=== PATIENT | female | born 2000 | race Caucasian/White ===

== ENCOUNTER 2022-03-30 15:47 | Outpatient (CLI) | payer OTHER ==
[2022-03-30 16:05] LABS: BILIRUBIN,URINE NEGATIVE (NEGATIVE); CLARITY,URINE CLOUDY (CLEAR); GLUCOSE, URINE (UA) NEGATIVE (NEGATIVE); KETONES,URINE (UA) NEGATIVE (NEGATIVE); LEUKOCYTE ESTERASE, URINE NEGATIVE (NEGATIVE); NITRITE,URINE POSITIVE (NEGATIVE); OCCULT BLOOD,URINE NEGATIVE (NEGATIVE); PROTEIN,URINE NEGATIVE (NEGATIVE); UROBILINOGEN,URINE 0.2 (NORMAL) E.U./dL (NORMAL)
[2022-03-30 16:15] LABS: AMORPHOUS SEDIMENT,UR Moderate /LPF; BACTERIA,URINE Rare /HPF (None Seen); RBC,URINE None Seen /HPF (0-5); SQUAMOUS EPITHELIAL CELL,UR RARE Squamous (<= Few); WBC,URINE 0-3 /HPF (0-5)
== END 2022-03-30 15:48 | disposition home or self-care (01) ==
LOC: LAB 15:47
PROVIDERS: ATTEND Nurse Practitioner
DX: Z32.01 Encounter for pregnancy test, result positive (principal)
CPT/HCPCS: 81001; 87086

== ENCOUNTER 2022-04-24 08:00 | Outpatient (CLI) | payer OTHER ==
[2022-04-24 23:34] LABS: CHLAMYDIA TRACHOMATIS DNA NEGATIVE (NEGATIVE); NEISSERIA GONORRHOEAE DNA NEGATIVE (NEGATIVE); TRICHOMONAS VAGINALIS DNA NEGATIVE (NEGATIVE)
== END 2022-04-24 23:59 | disposition home or self-care (01) ==
LOC: LAB.R 08:00
PROVIDERS: ATTEND Obstetrics & Gynecology
DX: Z11.3 Encounter for screening for infections with a predominantly sexual mode of transmission (principal)
CPT/HCPCS: 87491; 87591; 87661

== ENCOUNTER 2022-06-18 19:59 | Outpatient (CLI) | payer OTHER ==
--- NOTE | 2022-06-19 09:53 | Ultrasound Report ---
PROCEDURE: OB Detailed Eval INDICATIONS: SUPERVISION OF OUTSIDE/PRIOR DATING DATA: Last menstrual period (LMP): 01/29/2022. LMP-based estimated date of delivery (BERNARD): 11/05/2022. First dating scan (date and location): 04/14/2022. Estimated date of delivery (BERNARD) from first dating scan: 11/05/2022. The below data below was generated using the study generated BERNARD of 11/05/2022 TECHNIQUE: Real-time scanning was performed of the fetus, with image documentation and biometric measurements. Endovaginal scanning: not indicated COMPARISON: 04/14/2022. FINDINGS: General: A single living intrauterine gestation is present. Presentation: Vertex Placenta: Placental position is posterior, without previa. Amniotic fluid index: 14.7 cm, 55.5% for gestational age. heart rate: 155 beats per minute. Maternal cervical canal: 3.06 cm long; normal length is 2.5 cm or more. biometrics: Biparietal diameter: 4.6 cm, 20 weeks, 1 day Head circumference: 17.2 cm, 19 weeks, 5 days. Abdominal circumference: 14.5 cm, 19 weeks, 5 days. Femur length: 3.2 cm, 20 weeks, 0 day. Estimated gestational age from initial scan: 20 weeks, 0 day. Composite gestational age from present scan: 19 weeks, 6 days. Estimated weight and percentile: 318.6 g, 38.4%. Measurement variability in biometric dating: +/- 10 days from 12-20 weeks gestation, +/- 2 weeks from 20-30 weeks gestation, +/- 3 weeks at 30 weeks gestation or later. Anatomic survey: Neuro: Ventricles are normal at less than 10 mm. Cisterna magna is normal at 3-11 mm. Cerebellum i s normal in size and morphology. Nuchal skin fold: Normal at less than 6 mm between 14 and 20 weeks gestational age. Face: Facial profile is not well seen. Spine: No evidence for spina bifida. Heart: 4-chambered heart is present, with normal ventricular outflow tracts. Diaphragm: Diaphragm is now well seen due to position. Stomach: Left-sided stomach is present. Kidneys: No hydronephrosis. Normal is less than 5 mm in 2nd trimester, less than 7 mm in 3rd trimester. Cord: 3 vessel cord has orthotopic insertion. Bladder: Normal in size. Extremities: All 4 extremities are visualized. IMPRESSION: 1. Single live intrauterine gestation with fetus in vertex presentation. heart rate is 155 bpm. Normal amount of amniotic fluid at 14.7 cm which is at 55.5%. Normal growth. Estimated w eight is at 38.4%. 2. facial profile and diaphragm are not well visualized due to position. Rest of the feta l anatomic survey is within normal limits. Reviewed by: Clark Moreira MD on 06/19/2022 9:51 AM PDT Approved by: Clark Moreira MD on 06/19/2022 9:51 AM PDT Station ID: [id number]
== END 2022-06-18 20:00 | disposition home or self-care (01) ==
LOC: DI 19:59
PROVIDERS: ATTEND Obstetrics & Gynecology
DX: O09.91 Supervision of high risk pregnancy, unspecified, first trimester (principal); Z3A.19 19 weeks gestation of pregnancy

== ENCOUNTER 2022-06-25 16:59 | Outpatient (CLI) | payer OTHER ==
--- NOTE | 2022-06-26 09:54 | Ultrasound Report ---
PROCEDURE: OB F/U or Repeat INDICATIONS: SUPERVISION OF OUTSIDE/PRIOR DATING DATA: Last menstrual period (LMP): 01/29/2022. LMP-based estimated date of delivery (BERNARD): 11/05/2022. First dating scan (date and location): 04/14/2022. Estimated date of delivery (BERNARD) from first dating scan: 11/05/2022. The below data below was generated using the ultrasound BERNARD of 11/05/2022 TECHNIQUE: Real-time scanning was performed of the fetus, with image documentation. Endovaginal scanning: Not performed. COMPARISON: OB ultrasound 06/18/2022. FINDINGS: General: A single living intrauterine gestation is present. Presentation: Transverse. Placenta: Placental position is posterior, without previa. Amniotic fluid index: 12.7 cm, normal for gestational age. Largest pocket 3.8 cm. heart rate: 138 beats per minute. Maternal cervical canal: 4.3 cm long; normal length is 2.5 cm or more. No funneling. Estimated gestational age from initial scan: 21 weeks 0 days Other: profile is again suboptimally seen. No abnormality is identified. Nose and lips are nor mal. Orbits unremarkable. Diaphragm is unremarkable. Maternal ovaries are unremarkable. IMPRESSION: 1. Miller living intrauterine at 21 weeks 0 days based on prior ultrasound. Transverse p osition. 2. Normal placenta and amniotic fluid. 3. profile is again not seen due to positioning. Nose and lips and orbits are unremarkable. Kanwal phragm is unremarkable. Follow-up OB ultrasound should be considered to complete anatomic survey with profile view. Reviewed by: Foreign Fleming MD on 06/26/2022 9:52 AM PDT Approved by: Foreign Fleming MD on 06/26/2022 9:52 AM PDT Station ID: [id number]
== END 2022-06-25 17:00 | disposition home or self-care (01) ==
LOC: DI 16:59
PROVIDERS: ATTEND Obstetrics & Gynecology
DX: O09.92 Supervision of high risk pregnancy, unspecified, second trimester (principal)

== ENCOUNTER 2022-08-12 12:22 | Outpatient (CLI) | payer OTHER ==
[2022-08-12 13:34] LABS: HCT - HEMATOCRIT 34.5 % (37.0-47.0); HGB - HEMOGLOBIN 10.7 g/dL (12.0-16.0); MEAN CORPUSCULAR HEMOGLOBIN 24.9 pg (27.0-31.0); MEAN CORPUSCULAR VOLUME 80.2 fL (81.0-99.0); MEAN PLATELET VOLUME 10.3 fL (7.9-10.8); RED BLOOD COUNT 4.3 10^6/uL (4.20-5.40); WHITE BLOOD COUNT 10.4 x10^3/uL (4.8-10.8)
== END 2022-08-12 12:23 | disposition home or self-care (01) ==
LOC: LAB 12:22
PROVIDERS: ATTEND Obstetrics & Gynecology
DX: O09.92 Supervision of high risk pregnancy, unspecified, second trimester (principal); Z36.89 Encounter for other specified antenatal screening
CPT/HCPCS: 36415; 82950; 85027

== ENCOUNTER 2022-08-18 10:43 | Emergency (ER) | payer OTHER ==
[2022-08-18 11:20] LABS: BASOPHILS # (AUTO) 0.1 10^3/uL (0.0-0.1); BASOPHILS % (AUTO) 0.5 %; EOSINOPHILS # (AUTO) 0.1 10^3/uL (0.0-0.7); EOSINOPHILS % (AUTO) 0.8 %; HGB - HEMOGLOBIN 11.3 g/dL (12.0-16.0); LYMPHOCYTES # (AUTO) 1.6 10^3/uL (1.5-3.5); LYMPHOCYTES % (AUTO) 15.3 %; MEAN CORPUSCULAR HEMOGLOBIN 25.2 pg (27.0-31.0); MEAN CORPUSCULAR HGB CONC 31.4 g/dL (32.0-36.0); MEAN CORPUSCULAR VOLUME 80.2 fL (81.0-99.0); MEAN PLATELET VOLUME 10.4 fL (7.9-10.8); MONOCYTES # (AUTO) 0.7 10^3/uL (0.0-1.0); MONOCYTES % (AUTO) 6.8 %; NEUTROPHILS # (AUTO) 7.7 10^3/uL (1.5-6.6); NEUTROPHILS % (AUTO) 74.7 %; PLT - PLATELET COUNT 254 10^3/uL (130-450); RED BLOOD COUNT 4.49 10^6/uL (4.20-5.40); RED CELL DISTRIBUTION WIDTH 15.1 % (12.0-15.0); WHITE BLOOD COUNT 10.4 x10^3/uL (4.8-10.8)
[2022-08-18 11:35] LABS: ALBUMIN 2.9 g/dL (3.2-5.5); ALBUMIN/GLOBULIN RATIO 0.8 (1.0-2.2); BILIRUBIN,TOTAL 0.4 mg/dL (0.2-1.0); CALCIUM 8.7 mg/dL (8.5-10.3); CREATININE 0.4 mg/dL (0.4-1.0); POTASSIUM 3.9 mmol/L (3.5-5.0); TOTAL PROTEIN 6.4 g/dL (6.7-8.2)
[2022-08-18] MEDS ORDERED: SODIUM CHLORIDE 0.9% 1,000 ML IV STA (11:59)
--- NOTE | 2022-08-18 13:18 | PROCEDURE REPORT ---
- HPI Diagnosis/Indication for NST: Other (ED visit for fever, URI) Vital Signs Temperature 98.1 F 08/18/22 10:56 Heart Rate 89 08/18/22 10:56 Respiratory Rate 14 08/18/22 10:56 Blood Pressure 115/69 08/18/22 10:56 O2 Saturation 99 08/18/22 10:56 Temperature 97.7 F 08/18/22 13:05 Heart Rate 77 08/18/22 13:05 Respiratory Rate 17 08/18/22 13:05 Blood Pressure 110/64 08/18/22 13:05 O2 Saturation 99 08/18/22 13:05 If not protocol: Oxygen Flow, liters/minute - NST Procedure EFM: 140s, moderate variability, positive accelerations, no decelerations [place]: No contractions NST Reactive/Category 1 NST performed and read 08/18/22. - Results and Plan Plan: 22yo at 28.5w with reactive NST today. NST performed during ED visit for fever/URI. Follow up as scheduled in WC.
[2022-08-18 13:19] LABS: B. PARAPERTUSSIS- RESP PCR PAN NOT DETECTED; B. PERTUSSIS- RESP PCR PANEL NOT DETECTED; C. PNEUMONIAE- RESP PCR PANEL NOT DETECTED; CORONAVIRUS 229E-RESP PCR NOT DETECTED; CORONAVIRUS HKU1-RESP PCR NOT DETECTED; CORONAVIRUS NL63-RESP PCR NOT DETECTED; CORONAVIRUS OC43-RESP PCR NOT DETECTED; HUMAN METAPNEUMOVIRUS NOT DETECTED; INFLUENZA A- RESP PCR PANEL NOT DETECTED; INFLUENZA B - RESP PCR PANEL NOT DETECTED; M. PNEUMONIAE- RESP PCR PANEL NOT DETECTED; PARAINFLUENZA VIRUS 1 NOT DETECTED; PARAINFLUENZA VIRUS 2 NOT DETECTED; PARAINFLUENZA VIRUS 3 NOT DETECTED; PARAINFLUENZA VIRUS 4 NOT DETECTED; RHINOVIRUS/ENTEROVIRUS NOT DETECTED; RSV- RESP PCR PANEL NOT DETECTED; SARS-CoV-2 -RESP PCR PANEL NOT DETECTED
[2022-08-18] MEDS ORDERED: MECLIZINE 12.5 MG TABLET PO STA (13:27)
--- NOTE | 2022-08-18 13:28 | ED Physician Documentation ---
PD HPI SYNCOPE - Stated complaint Stated Complaint: N/V,DIZZINESS - Chief complaint Chief Complaint: Neuro - History obtained from History obtained from: Patient, Family - History of Present Illness Witnessed: Witnessed Timing - onset: Today Duration: Seconds Preceding symptoms: Nausea / vomiting (no vomiting but did get nauseated. has had nausea the past several days. trying to take fluids well. no fever nor URI symptoms. [place] lightheaded walking this morning, and sat down, then was seen to faint. awoke few seconds later. Still feeling weak. No pains (head/chest/abd).), Light headed Contributing factors: Decreased PO intake (some nausea the past few days. Worse today.), Just stood up. No: Recent med change, Emotional upset Injury occurred: No: Fell, Head injury, Neck injury Similar symptoms before: Has not had sx before Recently seen: Clinic (28 weeks with normal care so far.) Review of Systems Constitutional: reports: Fatigue. denies: Fever, Chills Nose: denies: Rhinorrhea / runny nose, Congestion Throat: denies: Sore throat Respiratory: denies: Cough GI: reports: Nausea. denies: Abdominal Pain, Vomiting, Diarrhea : reports: Now EGA (28 wks). denies: Discharge, Vaginal bleeding Neurologic: reports: Generalized weakness. 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 - Present Medications Home Medications: Ambulatory Orders Medication Instructions Recorded Confirmed Doxylamine Succinate [Unisom Sleep 25 mg PO Q6H PRN #15 tablet 08/18/22 Aid] Metoclopramide [Reglan] 10 mg PO BID PRN 08/18/22 08/18/22 - Allergies Allergies/Adverse Reactions: Allergies Allergy/AdvReac Type Severity Reaction Status Date / Time No Known Drug Allergies Allergy Verified 08/18/22 11:02 - Social History Does the pt smoke?: No Smoking Status: Never smoker Does the pt drink ETOH?: Yes Does the pt have substance abuse?: Yes - Immunizations Immunizations are current?: Yes PD ED PE NORMAL - Vitals Vital signs reviewed: Yes - General General: Alert and oriented X 3, No acute distress, Well developed/nourished - HEENT HEENT: Pharynx benign - Neck Neck: Supple, no meningeal sign, No adenopathy - Cardiac Cardiac: RRR, No murmur, Other (bedside U/S showed normal symmetric dynamic contractions. ) - Respiratory Respiratory: Clear bilaterally - Abdomen Abdomen: Normal bowel sounds, Soft, Non distended, No organomegaly, Other (bedside U/S showing normal movement and heart beat. NST by OB showed no contractions. No free fluid in pelvis nor abdomen (neg FAST exam)) Results - Vitals Vitals: Vital Signs - 24 hr 08/18/22 08/18/22 08/18/22 10:56 12:02 12:22 Temperature 36.7 C Heart Rate 89 85 Heart Rate [ 82 Sitting] Heart Rate [ 90 Standing] Heart Rate [ 85 Supine] Respiratory 14 13 Rate Blood Pressure 115/69 121/74 Blood Pressure 111/70 [Sitting] Blood Pressure 107/70 [Standing] Blood Pressure 109/66 [Supine] O2 Saturation 99 100 08/18/22 08/18/22 08/18/22 12:30 13:00 13:05 Temperature 36.5 C Heart Rate 75 82 77 Heart Rate [ Sitting] Heart Rate [ Standing] Heart Rate [ Supine] Respiratory 11 L 21 17 Rate Blood Pressure 109/67 103/67 110/64 Blood Pressure [Sitting] Blood Pressure [Standing] Blood Pressure [Supine] O2 Saturation 99 100 99 08/18/22 13:30 Temperature Heart Rate 85 Heart Rate [ Sitting] Heart Rate [ Standing] Heart Rate [ Supine] Respiratory 14 Rate Blood Pressure 108/64 Blood Pressure [Sitting] Blood Pressure [Standing] Blood Pressure [Supine] O2 Saturation 98 Oxygen O2 Source Room air - Labs Labs: Laboratory Tests 08/18/22 08/18/22 08/18/22 11:05 11:07 11:07 WBC 10.4 RBC 4.49 Hgb 11.3 L Hct 36.0 L MCV 80.2 L MCH 25.2 L MCHC 31.4 L RDW 15.1 H Plt Count 254 MPV 10.4 Neut # (Auto) 7.7 H Lymph # (Auto) 1.6 [place] # (Auto) 0.7 Eos # (Auto) 0.1 Baso # (Auto) 0.1 Absolute Nucleated RBC 0.00 Nucleated RBC % 0.0 Sodium 134 L Potassium 3.9 Chloride 104 Carbon Dioxide 21 Anion Gap 9.0 BUN 8 Creatinine 0.4 Estimated GFR (MDRD) 198 Glucose 83 Calcium 8.7 Magnesium 1.8 Total Bilirubin 0.4 AST 12 ALT 12 Alkaline Phosphatase 86 Troponin I High Sens Total Protein 6.4 L Albumin 2.9 L Globulin 3.5 Albumin/Globulin Ratio 0.8 L Lipase 31 Urine Color Urine Clarity Urine pH Ur Specific [place] Urine Protein Urine Glucose (UA) Urine Ketones Urine Occult Blood Urine Nitrite Urine Bilirubin Urine Urobilinogen Ur Leukocyte Esterase Ur Microscopic Review Urine Culture Comments Nasal Adenovirus (PCR) Nasal B. parapertussis DNA (PCR) Nasal Coronavir 229E PCR Nasal Coronavir HKU1 PCR Nasal Coronavir NL63 PCR Nasal Coronavir OC43 PCR Nasal Enterovir/Rhinovir PCR Nasal Influenza B PCR Nasal Influenza A PCR Nasal Parainfluen 1 PCR Nasal Parainfluen 2 PCR Nasal Parainfluen 3 PCR Nasal Parainfluen 4 PCR Nasal RSV (PCR) Nasal B.pertussis DNA PCR Nasal C.pneumoniae (PCR) Martin Human Metapneumo PCR Nasal M.pneumoniae (PCR) Nasal SARS-CoV-2 (PCR) 08/18/22 08/18/22 08/18/22 11:07 12:21 13:40 WBC RBC Hgb Hct MCV MCH MCHC RDW Plt Count MPV Neut # (Auto) Lymph # (Auto) [place]ink[place] # (Auto) Eos # (Auto) Baso # (Auto) Absolute Nucleated RBC Nucleated RBC % Sodium Potassium Chloride Carbon Dioxide Anion Gap BUN Creatinine Estimated GFR (MDRD) Glucose Calcium Magnesium Total Bilirubin AST ALT Alkaline Phosphatase Troponin I High Sens < 2.3 L Total Protein Albumin Globulin Albumin/Globulin Ratio Lipase Urine Color DARK YELLOW Urine Clarity CLEAR Urine pH 6.0 Ur Specific [place] 1.025 Urine Protein NEGATIVE Urine Glucose (UA) NEGATIVE Urine Ketones >=80 H Urine Occult Blood NEGATIVE Urine Nitrite NEGATIVE Urine Bilirubin NEGATIVE Urine Urobilinogen 0.2 (NORMAL) Ur Leukocyte Esterase NEGATIVE Ur Microscopic Review NOT INDICATED Urine Culture Comments NOT INDICATED Nasal Adenovirus (PCR) NOT DETECTED Nasal B. parapertussis DNA (PCR) NOT DETECTED Nasal Coronavir 229E PCR NOT DETECTED Nasal Coronavir HKU1 PCR NOT DETECTED Nasal Coronavir NL63 PCR NOT DETECTED Nasal Coronavir OC43 PCR NOT DETECTED Nasal Enterovir/Rhinovir PCR NOT DETECTED Nasal Influenza B PCR NOT DETECTED Nasal Influenza A PCR NOT DETECTED Nasal Parainfluen 1 PCR NOT DETECTED Nasal Parainfluen 2 PCR NOT DETECTED Nasal Parainfluen 3 PCR NOT DETECTED Nasal Parainfluen 4 PCR NOT DETECTED Nasal RSV (PCR) NOT DETECTED Nasal B.pertussis DNA PCR NOT DETECTED Nasal C.pneumoniae (PCR) NOT DETECTED Martin Human Metapneumo PCR NOT DETECTED Nasal M.pneumoniae (PCR) NOT DETECTED Nasal SARS-CoV-2 (PCR) NOT DETECTED PD MEDICAL DECISION MAKING - ED course Complexity details: re-evaluated patient (patient feeling okay with iV fluids.), considered differential, d/w patient, d/w speech correction consultant (Dr Guzman, passenger conductor. [place] workup was okay. ) Departure - Departure Disposition: 01 Home, Self Care Clinical Impression: Lightheaded Qualifiers: Weeks of gestation: 28 weeks Qualified Code(s): Z3A.28 - 28 weeks gestation of Syncope Qualifiers: Syncope type: unspecified Qualified Code(s): R55 - Syncope and collapse Condition: Stable Record reviewed to determine appropriate education?: Yes Instructions: ED Fainting Unkn Cause Follow-Up: Chavez Arauz MD [Provider Admit Priv/Credential] - Prescriptions: Doxylamine Succinate [Unisom Sleep Aid] 25 mg PO Q6H PRN #15 tablet PRN Reason: Nausea / Vomiting Comments: Your basic blood tests are normal enough here. You are mildly anemic but that is fairly common in . Your electrolytes and blood sugar and kidney function are good. Bedside evaluation of your baby's heartbeat and movement are good. No signs of fluid noted in your pelvis or abdominal cavity. Bedside evaluation of your heart function appears normal with limited bedside ultrasound. At this point unclear the cause of your fainting episode. Likely to be under hydration in conjunction with your mild dizziness type feeling. Consideration would be for an early viral illness or just hydration in general. You can use doxylamine every 6-8 hours if needed for nausea and could be helpful with the dizziness feeling as well. Your respiratory viral PCR test was negative for the viruses tested so in p articular no signs of COVID/influenza/RSV/parainfluenza which are the most current major viral illnesses going around. Follow-up with the [facility] clinic if not feeling better over the next few days. Rest today. Stay well-hydrated. Discharge Date/Time: 08/18/22 13:52
[2022-08-18 13:34] VITALS: BP 108/64
[2022-08-18 14:09] LABS: BILIRUBIN,URINE NEGATIVE (NEGATIVE); GLUCOSE, URINE (UA) NEGATIVE (NEGATIVE); KETONES,URINE (UA) >=80 mg/dL (NEGATIVE); LEUKOCYTE ESTERASE, URINE NEGATIVE (NEGATIVE); NITRITE,URINE NEGATIVE (NEGATIVE); OCCULT BLOOD,URINE NEGATIVE (NEGATIVE); PROTEIN,URINE NEGATIVE (NEGATIVE); UROBILINOGEN,URINE 0.2 (NORMAL) E.U./dL (NORMAL)
[2022-08-18 14:12] LABS: CLARITY,URINE CLEAR (CLEAR)
== END 2022-08-18 13:52 | disposition home or self-care (01) ==
LOC: ED 10:43
DX: O99.891 Other specified diseases and conditions complicating pregnancy (principal); R42 Dizziness and giddiness; Z3A.28 28 weeks gestation of pregnancy; Z20.822 Contact with and (suspected) exposure to COVID-19
CPT/HCPCS: 36415; 80053; 81003; 83690; 83735; 84484; 85025; 87633; 93005; 96360; 99284; A9270; 81001; 87086

== ENCOUNTER 2022-09-10 15:22 | Emergency (ER) | payer OTHER ==
[2022-09-10] MEDS ORDERED: SODIUM CHLORIDE 0.9% 1,000 ML IV STA ×2 (16:18→18:38)
--- NOTE | 2022-09-10 16:26 | ED Physician Documentation ---
History of Present Illness - Stated complaint Stated Complaint: FEVER,BODY ACHES/CHILLS - Chief complaint Chief Complaint: Heent - History obtained from History obtained from: Patient - Additonal information Additional information: This is a 22-year-old female who has no significant past medical history who is 32 weeks who presented with sudden onset, fever,Chills, sore throat, body aches, decreased Appetite earlier this morning. The patient fine yesterday and actually had a follow-up OB appointment yesterday in which everything looked well. She has not had any sick contacts. She denies Any vomiting or diarrhea, no change in urination, no flank pain. She has not had any vaginal bleeding or loss of fluids. She is feeling baby move though less than she is used to. She has had appetite is has not eaten much of anything but is tolerating p.o. fluids. She took Tylenol this morning with some relief. 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 - Present Medications Home Medications: Ambulatory Orders Medication Instructions Recorded Confirmed Doxylamine Succinate [Unisom Sleep 25 mg PO Q6H PRN #15 tablet 08/18/22 Aid] Metoclopramide [Reglan] 10 mg PO BID PRN 08/18/22 08/18/22 - Allergies Allergies/Adverse Reactions: Allergies Allergy/AdvReac Type Severity Reaction Status Date / Time No Known Drug Allergies Allergy Verified 09/10/22 15:30 - Social History Does the pt smoke?: No Smoking Status: Never smoker Does the pt drink ETOH?: Yes Does the pt have substance abuse?: Yes - Immunizations Immunizations are current?: Yes PD ED PE NORMAL - Vitals Vital signs reviewed: Yes - General General: Alert and oriented X 3, No acute distress, Well developed/nourished - HEENT HEENT: Atraumatic, Ears normal, Moist mucous membranes, Pharynx benign - Neck Neck: Supple, no meningeal sign, No adenopathy - Cardiac Cardiac: RRR (Tachycardic), No murmur - Respiratory Respiratory: No respiratory distress, Clear bilaterally - Abdomen Abdomen: Normal bowel sounds, Soft, Non tender, Non distended, Other (Gravid abdomen with active movement) - Back Back: No CVA TTP - Derm Derm: Normal color, Warm and dry, No rash - Extremities Extremities: No deformity, No edema - Neuro Neuro: Alert and oriented X 3 Eye Opening: Spontaneous Motor: Obeys Commands Verbal: Oriented GCS Score: 15 Results - Vitals Vitals: Vital Signs - 24 hr 09/10/22 09/10/22 09/10/22 15:26 17:29 18:36 Temperature 37.7 C Heart Rate 120 H 105 H 121 H Respiratory 16 29 H 15 Rate Blood Pressure 121/72 118/64 102/57 L O2 Saturation 98 97 95 09/10/22 20:22 Temperature Heart Rate 112 H Respiratory 15 Rate Blood Pressure 124/66 O2 Saturation 97 Oxygen O2 Source Room air - Labs Labs: Laboratory Tests 09/10/22 09/10/22 09/10/22 16:36 16:36 16:36 WBC RBC Hgb Hct MCV MCH MCHC RDW Plt Count MPV Neut # (Auto) Lymph # (Auto) [place] # (Auto) Eos # (Auto) Baso # (Auto) Absolute Nucleated RBC Nucleated RBC % Sodium Potassium Chloride Carbon Dioxide Anion Gap BUN Creatinine Estimated GFR (MDRD) Glucose Calcium Urine Color YELLOW Urine Clarity CLEAR Urine pH 6.0 Ur Specific [place] 1.025 Urine Protein NEGATIVE Urine Glucose (UA) NEGATIVE Urine Ketones >=80 H Urine Occult Blood NEGATIVE Urine Nitrite NEGATIVE Urine Bilirubin NEGATIVE Urine Urobilinogen 0.2 (NORMAL) Ur Leukocyte Esterase NEGATIVE Ur Microscopic Review NOT INDICATED Nasal Adenovirus (PCR) NOT DETECTED Nasal B. parapertussis DNA (PCR) NOT DETECTED Nasal Coronavir 229E PCR NOT DETECTED Nasal Coronavir HKU1 PCR NOT DETECTED Nasal Coronavir NL63 PCR NOT DETECTED Nasal Coronavir OC43 PCR NOT DETECTED Nasal Enterovir/Rhinovir PCR NOT DETECTED Nasal Influenza B PCR NOT DETECTED Nasal Influenza A PCR NOT DETECTED Nasal Parainfluen 1 PCR NOT DETECTED Nasal Parainfluen 2 PCR NOT DETECTED Nasal Parainfluen 3 PCR NOT DETECTED Nasal Parainfluen 4 PCR NOT DETECTED Nasal RSV (PCR) NOT DETECTED Nasal B.pertussis DNA PCR NOT DETECTED Nasal C.pneumoniae (PCR) NOT DETECTED Martin Human Metapneumo PCR NOT DETECTED Nasal M.pneumoniae (PCR) NOT DETECTED Nasal SARS-CoV-2 (PCR) NOT DETECTED Group A Strep Rapid Negative 09/10/22 09/10/22 16:39 16:39 WBC 16.7 H RBC 4.45 Hgb 10.4 L Hct 33.7 L MCV 75.7 L MCH 23.4 L MCHC 30.9 L RDW 15.6 H Plt Count 282 MPV 10.3 Neut # (Auto) 13.4 H Lymph # (Auto) 1.6 [place] # (Auto) 1.4 H Eos # (Auto) 0.0 Baso # (Auto) 0.1 Absolute Nucleated RBC 0.02 Nucleated RBC % 0.1 Sodium 132 L Potassium 3.5 Chloride 101 Carbon Dioxide 20 L Anion Gap 11.0 BUN 5 L Creatinine 0.5 Estimated GFR (MDRD) 153 Glucose 87 Calcium 8.7 Urine Color Urine Clarity Urine pH Ur Specific [place] Urine Protein Urine Glucose (UA) Urine Ketones Urine Occult Blood Urine Nitrite Urine Bilirubin Urine Urobilinogen Ur Leukocyte Esterase Ur Microscopic Review Nasal Adenovirus (PCR) Nasal B. parapertussis DNA (PCR) Nasal Coronavir 229E PCR Nasal Coronavir HKU1 PCR Nasal Coronavir NL63 PCR Nasal Coronavir OC43 PCR Nasal Enterovir/Rhinovir PCR Nasal Influenza B PCR Nasal Influenza A PCR Nasal Parainfluen 1 PCR Nasal Parainfluen 2 PCR Nasal Parainfluen 3 PCR Nasal Parainfluen 4 PCR Nasal RSV (PCR) Nasal B.pertussis DNA PCR Nasal C.pneumoniae (PCR) Martin Human Metapneumo PCR Nasal M.pneumoniae (PCR) Nasal SARS-CoV-2 (PCR) Group A Strep Rapid PD MEDICAL DECISION MAKING - ED course Complexity details: reviewed results, re-evaluated patient, considered differential, d/w patient, d/w family ED course: This is a 22-year-old female with no significant past medical history who presented with fever and body aches that started today as per HPI. Patient is well-appearing on physical exam though tachycardic on arrival with heart rate in the 120s. There are no acute physical exam findings, we obtained a viral panel and strep test which were negative therefore I did proceed with additional work-up given patient did meet SIRS criteria with fever and tachycardia. Her CBC is significant for a white blood cell count of 16,000 otherwise stable. Urinalysis is negative for infection. Chest x-ray negative for infection. Patient was given a total of 2 L of IV fluids with some improvement in her symptoms but still felt achy and fatigued. We did obtain a nonstress test as patient is 32 weeks and baby looked good. This is a suspect the patient has the flu Or other viral illness. We have drawn blood cultures To cover sepsis work-up however I have low suspicion patient has no other risk factors for bacteremia, no IV drug use, no cellulitis, no other signs of infection on physical exam. She was advised to continue Tylenol and stay well- hydrated if she has new or worsening symptoms return to the ER. Routine OB return Precautions discussed as well. Departure - Departure Disposition: 01 Home, Self Care Clinical Impression: Viral syndrome Condition: Good Instructions: ED Viral Syndrome Comments: You presented with body aches and chills and generally feeling unwell. We did a number of different tests which are all reassuring at this time. We did collect blood cultures though I have low suspicion that you have any type of blood infection but we will notify you if these turn positive. This is most likely a viral illness and we recommend supportive measures including plenty of rest, Tylenol as needed for body aches and fever. If you have new or worsening symptoms, return to the ER. Discharge Date/Time: 09/10/22 20:22
[2022-09-10 16:46] LABS: BASOPHILS # (AUTO) 0.1 10^3/uL (0.0-0.1); BASOPHILS % (AUTO) 0.3 %; EOSINOPHILS % (AUTO) 0.2 %; HCT - HEMATOCRIT 33.7 % (37.0-47.0); HGB - HEMOGLOBIN 10.4 g/dL (12.0-16.0); LYMPHOCYTES # (AUTO) 1.6 10^3/uL (1.5-3.5); LYMPHOCYTES % (AUTO) 9.7 %; MEAN CORPUSCULAR HEMOGLOBIN 23.4 pg (27.0-31.0); MEAN CORPUSCULAR HGB CONC 30.9 g/dL (32.0-36.0); MEAN CORPUSCULAR VOLUME 75.7 fL (81.0-99.0); MEAN PLATELET VOLUME 10.3 fL (7.9-10.8); MONOCYTES # (AUTO) 1.4 10^3/uL (0.0-1.0); MONOCYTES % (AUTO) 8.5 %; NEUTROPHILS # (AUTO) 13.4 10^3/uL (1.5-6.6); NRBC ABSOLUTE COUNT (AUTO) 0.02 x10^3/uL; NUCLEATED RED BLOOD CELLS AUTO 0.1 /100WBC; PLT - PLATELET COUNT 282 10^3/uL (130-450); RED BLOOD COUNT 4.45 10^6/uL (4.20-5.40); RED CELL DISTRIBUTION WIDTH 15.6 % (12.0-15.0); WHITE BLOOD COUNT 16.7 x10^3/uL (4.8-10.8)
[2022-09-10 16:55] LABS: CALCIUM 8.7 mg/dL (8.5-10.3); CREATININE 0.5 mg/dL (0.4-1.0); POTASSIUM 3.5 mmol/L (3.5-5.0)
[2022-09-10 16:56] LABS: BILIRUBIN,URINE NEGATIVE (NEGATIVE); GLUCOSE, URINE (UA) NEGATIVE (NEGATIVE); KETONES,URINE (UA) >=80 mg/dL (NEGATIVE); LEUKOCYTE ESTERASE, URINE NEGATIVE (NEGATIVE); NITRITE,URINE NEGATIVE (NEGATIVE); OCCULT BLOOD,URINE NEGATIVE (NEGATIVE); PROTEIN,URINE NEGATIVE (NEGATIVE); UROBILINOGEN,URINE 0.2 (NORMAL) E.U./dL (NORMAL)
[2022-09-10 16:57] LABS: CLARITY,URINE CLEAR (CLEAR)
[2022-09-10 17:01] LABS: RAPID STREP SCREEN Negative (Negative)
[2022-09-10 17:42] LABS: B. PARAPERTUSSIS- RESP PCR PAN NOT DETECTED; B. PERTUSSIS- RESP PCR PANEL NOT DETECTED; C. PNEUMONIAE- RESP PCR PANEL NOT DETECTED; CORONAVIRUS 229E-RESP PCR NOT DETECTED; CORONAVIRUS HKU1-RESP PCR NOT DETECTED; CORONAVIRUS NL63-RESP PCR NOT DETECTED; CORONAVIRUS OC43-RESP PCR NOT DETECTED; HUMAN METAPNEUMOVIRUS NOT DETECTED; INFLUENZA A- RESP PCR PANEL NOT DETECTED; INFLUENZA B - RESP PCR PANEL NOT DETECTED; M. PNEUMONIAE- RESP PCR PANEL NOT DETECTED; PARAINFLUENZA VIRUS 1 NOT DETECTED; PARAINFLUENZA VIRUS 2 NOT DETECTED; PARAINFLUENZA VIRUS 3 NOT DETECTED; PARAINFLUENZA VIRUS 4 NOT DETECTED; RHINOVIRUS/ENTEROVIRUS NOT DETECTED; RSV- RESP PCR PANEL NOT DETECTED; SARS-CoV-2 -RESP PCR PANEL NOT DETECTED
--- NOTE | 2022-09-10 18:36 | XRAY Report ---
PROCEDURE: Chest 1 View X-Ray INDICATIONS: Chest pain TECHNIQUE: One view of the chest was acquired. COMPARISON: None. FINDINGS: Surgical changes and devices: None. Lungs and pleura: No pleural effusions or pneumothorax. Lungs are clear. Mediastinum: Mediastinal contours appear normal. Heart size is normal. Bones and chest wall: No suspicious bony lesions. Overlying soft tissues appear unremarkable. IMPRESSION: No acute cardiopulmonary process demonstrated radiographically. Reviewed by: David Stevens MD on 09/10/2022 6:35 PM [facility] Approved by: David Stevens MD on 09/10/2022 6:35 PM [facility] Station ID: [id number]
[2022-09-10 20:23] VITALS: BP 124/66
--- NOTE | 2022-09-10 21:04 | PROCEDURE REPORT ---
- HPI Diagnosis/Indication for NST: Other (Maternal Fever) Vital Signs Temperature 99.9 F 09/10/22 15:26 Heart Rate 120 H 09/10/22 15:26 Respiratory Rate 16 09/10/22 15:26 Blood Pressure 121/72 09/10/22 15:26 O2 Saturation 98 09/10/22 15:26 Temperature 99.9 F 09/10/22 15:26 Heart Rate 112 H 09/10/22 20:22 Respiratory Rate 15 09/10/22 20:22 Blood Pressure 124/66 09/10/22 20:22 O2 Saturation 97 09/10/22 20:22 If not protocol: Oxygen Flow, liters/minute
== END 2022-09-10 20:22 | disposition home or self-care (01) ==
LOC: ED 15:22
DX: O98.513 Other viral diseases complicating pregnancy, third trimester (principal); B34.9 Viral infection, unspecified; Z3A.32 32 weeks gestation of pregnancy; Z20.822 Contact with and (suspected) exposure to COVID-19
CPT/HCPCS: 36415; 80048; 81001; 81003; 85025; 87040; 87070; 87430; 87633; 96360; 96361; 99282

== ENCOUNTER 2022-10-06 10:03 | Outpatient (CLI) | payer OTHER ==
[2022-10-06 10:27] VITALS: BP 122/71
[2022-10-06 11:07] LABS: RUPTURE OF MEMBRANES PLUS NEGATIVE (NEGATIVE)
--- NOTE | 2022-10-06 11:41 | PROVIDER PROGRESS NOTE ---
- HPI Chief Complaint: Leakage of vaginal fluid Current : Current EDU 11/05/22 Gestation 35 Weeks and 5 Days 2 Para 1 Vital Signs Temperature 98.6 F 10/06/22 10:16 Heart Rate 86 10/06/22 10:16 Respiratory Rate 16 10/06/22 10:16 Blood Pressure 122/71 10/06/22 10:16 Temperature 98.6 F 10/06/22 10:16 Heart Rate 86 10/06/22 10:16 Respiratory Rate 16 10/06/22 10:16 Blood Pressure 122/71 10/06/22 10:16 O2 Saturation If not protocol: Oxygen Flow, liters/minute - Procedures NST Procedure: NST Procedure Start Date 10/06/22 Start Time 10:12 Vibroacoustic Stimulation Used No Patient States Movement Yes Service Date of procedure: 10/06/22 (Read 10/06/2022) - Plan Plan: Patient is a 22-year-old G2, P1 at 35 weeks 5 days gestation presenting to triage for leaking fluid. She is at around 0600 to 0630 she felt a small amount of leaking, but noticed this was after she had drained her bladder. There is no large gush of fluid. She has good movement. No vaginal bleeding, no contractions. She denies headache, right upper quadrant pain, changes in vision. Past surgical history Previous section x1 Physical Constitutional: alert, no acute distress, well hydrated, well developed, well nourished, appropriate dress. Cardiovascular: Regular rate and rhythm. Respiratory: no respiratory distress. Abdomen: nondistended, nontender, no guarding. Psych: affect and mood appropriate, normal interaction, good eye contact. FHT: 150 bpm baseline, moderate variability, accelerations present, no decelerations. [place]: Quiescent SVE: 0/0/-3 ROM plus: Negative Assessment and plan 22-year-old -0-0-1 at 35 weeks 5 days gestation with vaginal leaking, not rupture of membranes 1. Vaginal discharge: -ROM plus was negative, and not having any significant drainage on exam. -Very low likelihood of rupture of membranes. Discussed labor precautions, and the different membranes were in fact rupture, high likelihood of labor in the next 24 hours. -Discussed labor precautions, rupture of membrane precautions. 2. 35 weeks gestation -Has outpatient OB visit tomorrow 3. Previous low-transverse section x1 -Patient already scheduled for repeat section.
[2022-10-06 13:08] LABS: BACTERIAL VAGINOSIS DNA NEGATIVE (NEGATIVE); CANDIDA GLABRATA DNA NEGATIVE (NEGATIVE); CANDIDA GROUP DNA NEGATIVE (NEGATIVE); CANDIDA KRUSEI DNA NEGATIVE (NEGATIVE); TRICHOMONAS VAGINALIS DNA NEGATIVE (NEGATIVE)
== END 2022-10-06 11:45 | disposition home or self-care (01) ==
LOC: WFO 10:03 → FBP 10:08 → WFO 11:45
PROVIDERS: ATTEND Obstetrics & Gynecology
DX: O99.891 Other specified diseases and conditions complicating pregnancy (principal); N89.8 Other specified noninflammatory disorders of vagina; O34.219 Maternal care for unspecified type scar from previous cesarean delivery; Z3A.35 35 weeks gestation of pregnancy
CPT/HCPCS: 59025; 81514; 84112; 87797; 99214

== ENCOUNTER 2022-10-08 08:00 | Outpatient (CLI) | payer OTHER | END 2022-10-08 23:59 | disposition home or self-care (01) | LOC: LAB.WC 08:00 | PROVIDERS: ATTEND Obstetrics & Gynecology | DX: Z36.85 Encounter for antenatal screening for Streptococcus B (principal) | CPT/HCPCS: 87797 ==

== ENCOUNTER 2022-10-13 10:58 | Outpatient (CLI) | payer OTHER ==
--- NOTE | 2022-10-13 14:05 | Ultrasound Report ---
PROCEDURE: OB F/U or Repeat INDICATIONS: SUPERVISION OF OUTSIDE/PRIOR DATING DATA: Last menstrual period (LMP): 01/29/2022. LMP-based estimated date of delivery (BERNARD): 11/05/2022. First dating scan (date and location): 04/14/2022. Estimated date of delivery (BERNARD) from first dating scan: 11/05/2022 (working BERNARD). TECHNIQUE: Real-time scanning was performed of the fetus, with image documentation. COMPARISON: 06/25/2022 FINDINGS: General: A single living intrauterine gestation is present. Presentation: Vertex Placenta: Placental position is posterior, without previa. Amniotic fluid index: 11.9 cm, 32nd percentile for gestational age. heart rate: 129 beats per minute. Maternal cervical canal: Not well seen Gestational age on today's study is 36 weeks and 5 days based on working BERNARD. Incidentally noted nuchal cord. profile view is probably within normal limits, although the man dible is not well seen due to late gestational age and flexed positioning of the neck. IMPRESSION: Living intrauterine gestation at 36 weeks and 5 days. The profile view is probably within normal limits, although the mandible is not well seen due to flex ed neck positioning and late gestational age. Incidentally noted nuchal cord. Reviewed by: Jose Luis Umanzor MD on 10/13/2022 2:03 PM PST Approved by: Jose Luis Umanzor MD on 10/13/2022 2:03 PM PST Station ID: [id number]
== END 2022-10-13 10:59 | disposition home or self-care (01) ==
LOC: DI 10:58
PROVIDERS: ATTEND Obstetrics & Gynecology
DX: O09.93 Supervision of high risk pregnancy, unspecified, third trimester (principal); Z3A.36 36 weeks gestation of pregnancy

== ENCOUNTER 2022-10-30 05:25 | Inpatient (IN) | payer OTHER ==
[2022-10-30] MEDS ORDERED: LACTATED RINGERS 1,000 ML IV SCH ×3 (06:00→10:00)
[2022-10-30] MEDS ORDERED: GABAPENTIN 100 MG CAPSULE PO SCH (06:00)
[2022-10-30] MEDS ORDERED: CELECOXIB 100 MG CAPSULE PO SCH (06:00)
[2022-10-30] MEDS ORDERED: ACETAMINOPHEN 1,000 MG/100 ML 1,000 MG/100 ML BAG IV ONE (06:00)
[2022-10-30] MEDS ORDERED: CEFAZOLIN 2G/50ML 0.9% NS 2 GM/50 ML BAG IV ONE ×2 (06:00→07:14)
[2022-10-30] MEDS ORDERED: GABAPENTIN 400 MG CAPSULE PO SCH (07:05)
[2022-10-30 07:13] LABS: BASOPHILS # (AUTO) 0.1 10^3/uL (0.0-0.1); BASOPHILS % (AUTO) 0.7 %; EOSINOPHILS # (AUTO) 0.1 10^3/uL (0.0-0.7); EOSINOPHILS % (AUTO) 1.2 %; HCT - HEMATOCRIT 31.1 % (37.0-47.0); HGB - HEMOGLOBIN 9.3 g/dL (12.0-16.0); LYMPHOCYTES # (AUTO) 2.6 10^3/uL (1.5-3.5); LYMPHOCYTES % (AUTO) 27.4 %; MEAN CORPUSCULAR HEMOGLOBIN 21.4 pg (27.0-31.0); MEAN CORPUSCULAR HGB CONC 29.9 g/dL (32.0-36.0); MEAN CORPUSCULAR VOLUME 71.5 fL (81.0-99.0); MEAN PLATELET VOLUME 11.2 fL (7.9-10.8); MONOCYTES # (AUTO) 0.9 10^3/uL (0.0-1.0); MONOCYTES % (AUTO) 9.7 %; NEUTROPHILS # (AUTO) 5.6 10^3/uL (1.5-6.6); PLT - PLATELET COUNT 285 10^3/uL (130-450); RED BLOOD COUNT 4.35 10^6/uL (4.20-5.40); RED CELL DISTRIBUTION WIDTH 17.4 % (12.0-15.0); WHITE BLOOD COUNT 9.4 x10^3/uL (4.8-10.8)
[2022-10-30] MEDS ORDERED: miSOPROStoL 200 MCG TABLET ONE (07:16)
[2022-10-30] MEDS ORDERED: METHYLERGONOVINE 0.2 MG/ML VIAL ONE (07:16)
[2022-10-30] MEDS ORDERED: CARBOPROST TROMETHAMINE 250 MCG/ML AMP IM ONE (07:16)
[2022-10-30] MEDS ORDERED: OXYTOCIN 10 UNIT/ML VIAL ONE (07:18)
[2022-10-30] MEDS ORDERED: MORPHINE PF 5 MG/10 ML VIAL ONE (07:24)
[2022-10-30] MEDS ORDERED: fentaNYL 100 MCG/2 ML VIAL ONE (07:25)
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
[2022-10-30] MEDS ORDERED: MORPHINE PF 5 MG/10 ML VIAL IT ONE (08:08)
[2022-10-30] MEDS ORDERED: SODIUM CHLORIDE 0.9% 10 ML VIAL IVP ONE (08:10)
[2022-10-30] MEDS ORDERED: ONDANSETRON 4 MG/2 ML VIAL ONE (08:47)
[2022-10-30] MEDS ORDERED: NALBUPHINE 10 MG/ML AMP IVP PRN (09:01)
[2022-10-30] MEDS ORDERED: ONDANSETRON 4 MG/2 ML VIAL IVP PRN ×2 (09:01→09:03)
[2022-10-30] MEDS ORDERED: NALOXONE 0.4 MG/ML VIAL IVP PRN ×2 (09:01→09:03)
[2022-10-30] MEDS ORDERED: fentaNYL 100 MCG/2 ML VIAL IT ONE (09:01)
[2022-10-30] MEDS ORDERED: diphenhydrAMINE INJ 50 MG/ML VIAL IVP PRN (09:01)
--- NOTE | 2022-10-30 09:01 | ANESTHESIA ---
Pre-Anesthesia VS, & Labs - Diagnosis previous c/s, desires sterilization - Procedure repeat c/s with bilateral tubal ligation Vital Signs: Temp Pulse Resp BP Pulse Ox O2 Flow Rate 36.7 C 101 H 16 116/75 10/30/22 05:43 10/30/22 05:43 10/30/22 05:43 10/30/22 05:43 Height: 5 ft 3 in Weight (kg): 85.729 kg Body Mass Index: 33.5 BMI Classification: Obese - NPO >8 hours - Is Patient ?: Yes - Lab Results Current Lab Results: Laboratory Tests 10/30/22 06:30: WBC 9.4, RBC 4.35, Hgb 9.3 L, Hct 31.1 L, MCV 71.5 L, MCH 21.4 L , MCHC 29.9 L, RDW 17.4 H, Plt Count 285, MPV 11.2 H, Neut # (Auto) 5.6, Lymph # (Auto) 2.6, [place] # (Auto) 0.9, Eos # (Auto) 0.1, Baso # (Auto) 0.1, Absolute Nucleated RBC 0.00, Nucleated RBC % 0.0 10/30/22 06:30: Blood Type B POSITIVE, Antibody Screen NEGATIVE Fish Bones: 10/30/22 06:30 Home Medications and Allergies Active Medications Celecoxib (Celecoxib 100 Mg Capsule) 400 mg PO ONCE BAKARI Stop: 10/31/22 05:59 Last Admin: 10/30/22 06:59 Dose: 400 mg Gabapentin (Gabapentin 400 Mg Capsule) 800 mg PO ONCE BAKARI Stop: 10/30/22 09:00 Last Admin: 10/30/22 07:11 Dose: 800 mg Lactated Ringer's (Lr) 1,000 mls @ 0 mls/hr IV .Q0M BAKARI Last Admin: 10/30/22 07:00 Dose: 150 mls/hr Metoclopramide [Reglan] 10 mg PO BID PRN 08/18/22 Allergies/Adverse Reactions: Allergies Allergy/AdvReac Type Severity Reaction Status Date / Time No Known Drug Allergies Allergy Verified 09/10/22 15:30 Anes History & Medical History - Anesthetic History Anesthesia Complications: reports: No previous complications - Medical History Cardiovascular: reports: None Pulmonary: reports: None Gastrointestinal: reports: GERD (during ) Urinary: reports: None Neuro: reports: None Musculoskeletal: reports: None Endocrine/Autoimmune: reports: None Blood Disorders: reports: None Skin: reports: None Smoking Status: Former smoker Psychosocial: reports: No issues indicated History of Cancer?: No - Surgical History Gynecologic: reports: section - Obstetrical History : 2 Parity: 1 Events: reports: Previous Complications: reports: None Exam General: Alert, Oriented x3, Cooperative, No acute distress Dental: WNL Mouth Openin Fingerbreadth Neck Mobility: Normal Mallampati classification: II Thyromental Distance: less than 4 cm Mental/Cognitive Status: Alert/Oriented X3, Normal for patient Plan Anesthesia Type: Spinal Consent for Procedure(s) Verified and Reviewed: Yes Code Status: Attempt Resuscitation ASA classification: 2-Mild systemic disease Is this case an emergency?: No
[2022-10-30] MEDS ORDERED: ATROPINE ABBOJECT 1 MG/10 ML SYRINGE IVP PRN (09:03)
[2022-10-30] MEDS ORDERED: fentaNYL 100 MCG/2 ML VIAL IVP PRN (09:03)
[2022-10-30] MEDS ORDERED: HYDROmorphone 0.5 MG/0.5 ML SYRINGE IVP PRN (09:03)
[2022-10-30] MEDS ORDERED: MORPHINE 2 MG/ML CARPUJECT IVP PRN (09:03)
[2022-10-30] MEDS ORDERED: PHENYLEPHRINE 10 MG/ML VIAL ONE (09:05)
[2022-10-30] MEDS ORDERED: OXYTOCIN/SODIUM CHLORIDE 500 ML IV PRN (09:32)
[2022-10-30] MEDS ORDERED: SIMETHICONE CHEW 80 MG TABLET PO PRN (09:32)
[2022-10-30] MEDS ORDERED: oxyCODONE 5 MG TABLET PO PRN (09:32)
[2022-10-30] MEDS ORDERED: ONDANSETRON ODT 4 MG TABLET TL PRN (09:32)
--- NOTE | 2022-10-30 09:32 | OPERATIVE REPORT ---
Operative Report - General Admit Date: 10/30/22 Planned Procedure: Repeat low-transverse section and bilateral salpingectomy Pre-Op Diagnosis: Previous low-transverse section, 39 weeks gestation Procedure Performed: Repeat low-transverse section and bilateral salpingectomy Post Op Diagnosis: Status post repeat low-transverse section and BTL - Procedure Note Primary Surgeon: Chavez Arauz MD Secondary Surgeon: ALBERTO Freed Anesthesia Provider: Nelda Paredes CRNA Anesthesia Technique: Spinal Pathology: Bilateral fallopian tubes Estimated Blood Loss (mL): 600 Urine Output (mL): 50 Complications: none - Other Other Information/Narrative: section was recommended. Risks, benefits and alternatives were discussed including but not limited to infection, bleeding that may require blood products or hysterectomy for life saving measures, injury to surrounding organs including but not limited to bowel, bladder, ureters, tubes and ovaries and/or the baby. Should injury occur it could require longer/additional surgery to repair. The patient stated understanding and desired to proceed. All question s were answered posed by patient. Prior to being taken to the OR, 2 grams of cefazolin IV was administered. The patient was taken to the operating room where regional anesthesia was found to be adequate. She was then prepared and draped in the usual sterile fashion in the dorsal supine position with a leftward tilt displacing the uterus. [place] was draining to gravity. SCDs were on bilateral lower extremities. A pfannenstiel skin incision was then made with the scalpel and carried through to the underlying layer of fascia. The fascia was incised in the midline and the incision extended laterally with the Kaur scissors. The superior aspect of the facial incision was then grasped with the Dede clamps, elevated and the underlying rectus muscles dissected off sharply. Attention was then turned to the inferior aspect of this incision which in a similar fashion was grasped, elevated with the Dede clamps and the rectus muscle dissected off sharply. The rectus muscles were in the midline. The peritoneum identified, grasped with the pick-ups and entered sharply with the Metzenbaum scissors. The peritoneal incision was then extended superiorly and inferiorly with good visualization of the bladder. The bladder blade was inserted. The vesicouterine peritoneum was identified, grasped with the pick-ups, and entered sharply with Metzenbaum scissors. This incision was then extended laterally and the bladder flap created digitally. The bladder blade was reinserted. The lower uterine segment was identified and incised in a transverse fashion with the scalpel. The uterine incision was then extended bluntly laterally. Artificial rupture of membranes demonstrated clear fluid. The bladder blade was removed. The fetus was in a cephalic presentation. The infants head delivered atraumatically. The anterior shoulders were delivered followed by the posterior shoulders then the remainder of the body. The infants mouth and nose were bulb suctioned. The umbilical cord was clamped times two and cut. The was handed to the pediatric team. The placenta was removed with gentle traction. Oxytocin were added to IVF and allowed to run freely. The uterus was exteriorized and cleared of all clots and debris. The uterine incision was inspected and found to be without any extensions and was repaired with 0 Vicryl in a running, locked fashion. Several [id number] stitches were used to stop small areas of bleeding. Upon inspection, the repaired hysterotomy was found to be hemostatic. The left fallopian tube was then grasped with a Marianna clamp at the fimbriated end and in the middle of the tube. The LigaSure device was then used to separate the fimbriated end from the ovary and sequential coagulation and cutting progressing up the mesosalpinx until the area of the cornua. At that point it was coagulated and cut, transecting the tube from the uterus. The same procedure was performed on the right side. Both tubes were sent to pathology. The uterus was firm and returned to the abdomen. The gutters were cleared of all clots and debris. The fascia was reapproximated with 0 Vicryl in a running fashion. The subcutaneous tissue was closed with 2-0 Vicryl. The skin was closed in a subcuticular fashion with 4-0 Monocryl. The patient tolerated the procedure well. Sponge, lap and needle counts were correct times three. The patient was taken to the recovery room in stable condition. I appreciate the assistance of ALBERTO Freed during this procedure, and the assistance in retraction, visualization, dissection, and overall assistance during the case were instrumental to the patient's wellbeing.
[2022-10-30] MEDS ORDERED: LACTATED RINGERS 400 ML IV ONE (09:41)
[2022-10-30] MEDS ORDERED: KETOROLAC 30 MG/ML VIAL IVP SCH (10:00)
--- NOTE | 2022-10-30 10:08 | ANESTHESIA POST OP EVALUATION ---
Anesthesia Post Eval - Post Anesthesia Eval Vitals: Last Vital Signs Temp 36.1 C L 10/30/22 09:46 Pulse 73 10/30/22 09:46 Resp 12 10/30/22 09:46 BP 104/63 10/30/22 09:46 Pulse Ox 99 10/30/22 09:46 O2 Flow Rate CV Function Including HR & BP: Stable Pain Control: Satisfactory Nausea & Vomiting: Negative Mental Status: Baseline Respiratory Status: Airway Patent Hydration Status: Satisfactory Anesthesia Complications: None
[2022-10-30] MEDS: KETOROLAC 30 MG/ML VIAL IVP SCH ×2 (16:03→22:54)
[2022-10-30] MEDS: ACETAMINOPHEN 500 MG TABLET PO SCH (16:03)
[2022-10-30] MEDS: SODIUM CHLORIDE FLUSH 0.9% 10 ML SYRINGE IVP SCH (19:46)
[2022-10-30] MEDS: SODIUM CHLORIDE FLUSH 0.9% 10 ML SYRINGE IVP PRN ×2 (22:53→22:56)
[2022-10-30] MEDS: DOCUSATE SODIUM 100 MG CAPSULE PO SCH (22:55)
[2022-10-31] MEDS: ACETAMINOPHEN 500 MG TABLET PO SCH ×3 (00:32→16:21)
[2022-10-31] MEDS: KETOROLAC 30 MG/ML VIAL IVP SCH ×2 (04:22→10:32)
[2022-10-31] MEDS: SODIUM CHLORIDE FLUSH 0.9% 10 ML SYRINGE IVP PRN ×2 (04:23→10:33)
[2022-10-31] MEDS: SODIUM CHLORIDE FLUSH 0.9% 10 ML SYRINGE IVP SCH (04:25)
[2022-10-31 05:16] LABS: BASOPHILS % (AUTO) 0.4 %; EOSINOPHILS # (AUTO) 0.1 10^3/uL (0.0-0.7); EOSINOPHILS % (AUTO) 0.9 %; HCT - HEMATOCRIT 29.2 % (37.0-47.0); HGB - HEMOGLOBIN 8.5 g/dL (12.0-16.0); LYMPHOCYTES # (AUTO) 2.4 10^3/uL (1.5-3.5); LYMPHOCYTES % (AUTO) 25.9 %; MEAN CORPUSCULAR HEMOGLOBIN 21.1 pg (27.0-31.0); MEAN CORPUSCULAR HGB CONC 29.1 g/dL (32.0-36.0); MEAN CORPUSCULAR VOLUME 72.5 fL (81.0-99.0); MEAN PLATELET VOLUME 10.7 fL (7.9-10.8); MONOCYTES # (AUTO) 0.9 10^3/uL (0.0-1.0); NEUTROPHILS # (AUTO) 5.6 10^3/uL (1.5-6.6); NEUTROPHILS % (AUTO) 61.7 %; PLT - PLATELET COUNT 245 10^3/uL (130-450); RED BLOOD COUNT 4.03 10^6/uL (4.20-5.40); RED CELL DISTRIBUTION WIDTH 17.2 % (12.0-15.0); WHITE BLOOD COUNT 9.1 x10^3/uL (4.8-10.8)
[2022-10-31] MEDS: DOCUSATE SODIUM 100 MG CAPSULE PO SCH ×2 (10:32→20:03)
--- NOTE | 2022-10-31 11:54 | PROVIDER PROGRESS NOTE ---
Subjective - Prog Note Date Prog Note Date: 10/31/22 - Subjective Pt reports feeling: Improved Subjective: Comfortable. Appropriate lochia. Ambulating. Voiding. Tolerating regular diet. Denies lightheadnedness or dizziness. Objective - Vital Signs/Intake & Output Reviewed Vital Signs: Yes Vital Signs: Vital Signs x48h Temp Pulse Resp BP Pulse Ox 10/31/22 08:00 97.9 F 94 14 113/64 100 10/31/22 04:20 97.9 F 74 15 105/55 L 99 Intake & Output: Intake & Output 10/28/22 10/29/22 10/30/22 10/31/22 23:59 23:59 23:59 23:59 Intake Total 3225 400 Output Total 1660 600 Balance 1565 -200 - Objective General Appearance: positive: No acute distress Eyes Bilateral: positive: EOMI Respiratory: positive: No respiratory distress Abdomen: positive: Non-tender (Dressing removed, incision c/d/i) Skin: positive: Color nml Extremities: positive: Non-tender Neurologic/Psychiatric: positive: Oriented x3 - Lab Results Fish Bones: 10/31/22 05:09 Other Labs: Lab Results x24hrs 10/31/22 Range/Units 05:09 WBC 9.1 (4.8-10.8) x10^3/uL RBC 4.03 L (4.20-5.40) 10^6/uL Hgb 8.5 L (12.0-16.0) g/dL Hct 29.2 L (37.0-47.0) % MCV 72.5 L (81.0-99.0) fL MCH 21.1 L (27.0-31.0) pg MCHC 29.1 L (32.0-36.0) g/dL RDW 17.2 H (12.0-15.0) % Plt Count 245 (130-450) 10^3/uL MPV 10.7 (7.9-10.8) fL Neut # (Auto) 5.6 (1.5-6.6) 10^3/uL Lymph # (Auto) 2.4 (1.5-3.5) 10^3/uL [place] # (Auto) 0.9 (0.0-1.0) 10^3/uL Eos # (Auto) 0.1 (0.0-0.7) 10^3/uL Baso # (Auto) 0.0 (0.0-0.1) 10^3/uL Absolute Nucleated RBC 0.00 x10^3/uL Nucleated RBC % 0.0 /100WBC Assessment/Plan - Problem List (1) care following delivery Impression: 22yo s/p scheduled RCD/BS on 10/30, POD#1 doing well - care (2) Postoperative anemia due to acute blood loss Impression: IV Infed ordered (3) Single live Impression: Anticipate discharge today or tomorrow (4) 39 weeks gestation of Impression: doing well, rooming with mother
[2022-10-31] MEDS ORDERED: IRON DEXTRAN 1,000 MG in SODIUM CHLORIDE 0.9% 250 ML IV ONE (12:00)
[2022-10-31] MEDS: IBUPROFEN 600 MG TABLET PO SCH ×2 (16:22→16:32)
[2022-10-31 20:00] VITALS: BP 132/80
--- NOTE | 2022-11-01 15:20 | DISCHARGE SUMMARY ---
"Discharge Summary Admit Date: 10/30/22 Discharge Date: 10/31/22 Discharging Provider: Katerina Guzman DO Code Status: Attempt Resuscitation Condition at Discharge: Good Discharge Disposition: Home, Self Care Discharge Facility Name: [facility] - DIAGNOSES Admission Diagnoses: 39 weeks Prior CD, desires RCD Multiparity, desires sterilization - HPI History of Present Illness: 22yo at 39.1w presented to [facility] on 10/30 for scheduled RCD/BS - CONSULTS | PROCEDURES Consultations: Anesthesia Procedures: Spinal Repeat section Bilateral salpingectomy - HOSPITAL COURSE Hospital Course: 22yo at 39.1w presented to [facility] on 10/30 for scheduled RCD/BS. Uncomplicated procedures, see operative report. She is recovering appropriately. Anemia intrapartum, minimal blood loss during RCD but post operative Hgb 8.5. She received iron infusion. Denies dizziness. Desires to go home POD#1 and baby jose luis red for discharge as well. and postoperative care reviewed. Follow up in by 2w. - ALLERGIES Allergies/Adverse Reactions: Allergies Allergy/AdvReac Type Severity Reaction Status Date / Time orange Allergy Hives Verified 10/30/22 10:54 orange juice Allergy Hives Verified 10/30/22 10:54 - MEDICATIONS Home Medications: Ambulatory Orders Medication Instructions Recorded Confirmed Doxylamine Succinate [Unisom Sleep 25 mg PO Q6H PRN #15 tablet 08/18/22 Aid] Metoclopramide [Reglan] 10 mg PO BID PRN 08/18/22 08/18/22 - PHYSICAL EXAM AT DISCHARGE General Appearance: positive: No acute distress Eyes Bilateral: positive: EOMI Respiratory: positive: No respiratory distress Abdomen: positive: Other (dressing removed, incision c/d/i, appropriately tender) Skin: positive: Color nml Extremities: positive: Non-tender - LABS Result Diagrams: 10/31/22 05:09 - QUALITY (Female Hip Fx Only) Was patient sent home on osteoporosis medication?: No - FOLLOW UP Follow Up: Follow up as scheduled 11/11/22 with - TIME SPENT Time Spent in Discharge (Minutes): 30"
== END 2022-10-31 20:30 | disposition home or self-care (01) | DRG 784 ==
LOC: FBP 05:25
PROVIDERS: ADMIT Obstetrics & Gynecology; ATTEND Obstetrics & Gynecology
PROC: 0UB70ZZ Excision of Bilateral Fallopian Tubes, Open Approach (ICD-10-PCS; 2022-10-30)
PROC: 10D00Z1 Extraction of Products of Conception, Low, Open Approach (ICD-10-PCS; principal; 2022-10-30 07:30)
DX: O34.211 Maternal care for low transverse scar from previous cesarean delivery (principal); D62 Acute posthemorrhagic anemia; O90.81 Anemia of the puerperium; Z3A.39 39 weeks gestation of pregnancy; Z37.0 Single live birth; Z30.2 Encounter for sterilization
CPT/HCPCS: 36415; 85025; 86850; 86900; 86901; A9270; J0131; J0690; J1750; J2274; J7120

== ENCOUNTER 2023-06-07 12:22 | Outpatient (CLI) | payer OTHER | END 2023-06-07 12:23 | disposition critical access hospital (66) | LOC: EMS 12:22 | DX: R20.0 Anesthesia of skin (principal); R53.1 Weakness; R51.9 Headache, unspecified | CPT/HCPCS: A0425; A0429 ==

== ENCOUNTER 2023-06-07 12:51 | Emergency (ER) | payer OTHER ==
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
[2023-06-07] MEDS ORDERED: HALOPERIDOL 5 MG/ML VIAL IVP STA (12:56)
[2023-06-07 13:02] VITALS: O2SAT 100
[2023-06-07 13:10] LABS: VBG PCO2 38.1 mmHg (41-51); VBG PH 7.414 (7.31-7.41)
[2023-06-07 13:11] LABS: BASOPHILS % (AUTO) 0.5 %; EOSINOPHILS # (AUTO) 0.1 10^3/uL (0.0-0.7); EOSINOPHILS % (AUTO) 0.8 %; HCT - HEMATOCRIT 42.2 % (37.0-47.0); HGB - HEMOGLOBIN 14.2 g/dL (12.0-16.0); LYMPHOCYTES # (AUTO) 2.6 10^3/uL (1.5-3.5); LYMPHOCYTES % (AUTO) 29.4 %; MEAN CORPUSCULAR HEMOGLOBIN 29.7 pg (27.0-31.0); MEAN CORPUSCULAR HGB CONC 33.6 g/dL (32.0-36.0); MEAN CORPUSCULAR VOLUME 88.3 fL (81.0-99.0); MEAN PLATELET VOLUME 9.4 fL (7.9-10.8); MONOCYTES # (AUTO) 0.7 10^3/uL (0.0-1.0); MONOCYTES % (AUTO) 8.4 %; NEUTROPHILS # (AUTO) 5.2 10^3/uL (1.5-6.6); NEUTROPHILS % (AUTO) 60.4 %; PLT - PLATELET COUNT 262 10^3/uL (130-450); RED BLOOD COUNT 4.78 10^6/uL (4.20-5.40); RED CELL DISTRIBUTION WIDTH 12.4 % (12.0-15.0); VBG BASE EXCESS -0.4 mmol/L (-2 - +2); VBG HCO3 23.8 mmol/L (23-28); VBG OXYGEN SATURATION 82.3 % (60-80); VBG PO2 41.3 mmHg (25-47); WHITE BLOOD COUNT 8.7 x10^3/uL (4.8-10.8)
[2023-06-07 13:22] VITALS: BP 122/75
[2023-06-07 13:33] LABS: MUDS CUTOFF CONCENTRATIONS CUTOFF CONC BELOW:
[2023-06-07 13:38] LABS: BUN - BLOOD UREA NITROGEN 12 mg/dL (6-20); CALCIUM 9.9 mg/dL (8.5-10.3); CARBON DIOXIDE - CO2 26 mmol/L (21-32); CHLORIDE 106 mmol/L (101-111); CREATININE 0.5 mg/dL (0.6-1.3); ETOH - ETHANOL < 10.0 mg/dL; GFR - MDRD 152 (>89); GLUCOSE 92 mg/dL (74-104); MAGNESIUM 1.8 mg/dL (1.7-2.3); POTASSIUM 3.5 mmol/L (3.5-4.5); SODIUM 138 mmol/L (135-145)
[2023-06-07 13:44] LABS: AMPHETAMINE SCREEN,URINE NEGATIVE (NEGATIVE); BARBITURATE SCREEN,UR NEGATIVE (NEGATIVE); BENZODIAZEPINES SCREEN, URINE NEGATIVE (NEGATIVE); COCAINE SCREEN URINE NEGATIVE (NEGATIVE); METHADONE SCREEN, URINE NEGATIVE (NEGATIVE); METHAMPHETAMINES SCREEN, URINE NEGATIVE (NEGATIVE); OPIATE SCREEN, URINE NEGATIVE (NEGATIVE); OXYCODONE SCREEN, URINE NEGATIVE (NEGATIVE); PROPOXYPHENE SCREEN, URINE NEGATIVE (NEGATIVE); THC CANNABINOID SCREEN, URINE NEGATIVE (NEGATIVE); TRICYCLIC ANTIDEPRESSANT,URINE NEGATIVE (NEGATIVE)
--- NOTE | 2023-06-07 14:02 | CT Report ---
PROCEDURE: HEAD WO INDICATIONS: weak TECHNIQUE: Noncontrast 4.5 mm thick angled axial sections acquired from the foramen magnum to the vertex. For r adiation dose reduction, the following was used: automated exposure control, adjustment of mA and/or kV according to patient size. COMPARISON: None. FINDINGS: Image quality: Excellent. CSF spaces: Basal cisterns are patent. No extra-axial fluid collections. Ventricles are normal in size and shape. Brain: No midline shift. No intracranial masses or hemorrhage. Kaur-white matter interface is norm al. Skull and face: Calvarium and visualized facial bones are intact, without suspicious lesions. Sinuses: Visualized sinuses and mastoids are clear. IMPRESSION: No acute intracranial pathology. Reviewed by: Clark Moreira MD on 06/07/2023 2:00 PM PDT Approved by: Clark Moreira MD on 06/07/2023 2:00 PM PDT Station ID: [id number]
== END 2023-06-07 14:15 | disposition home or self-care (01) ==
LOC: EDUNIT# → EDBD → ED 12:51
DX: R53.1 Weakness (principal); Z87.820 Personal history of traumatic brain injury; Z87.891 Personal history of nicotine dependence
CPT/HCPCS: 36415; 80048; 80306; 80320; 82803; 83735; 85025; 93005; 96372; 99284

== ENCOUNTER 2023-10-01 11:52 | Emergency (ER) | payer OTHER ==
[2023-10-01 12:23] VITALS: BP 134/80; O2SAT 99
--- NOTE | 2023-10-01 12:46 | ED Physician Documentation ---
PD HPI BACK PAIN - Stated complaint Stated Complaint: LOWER BACK PX,MIGRAINE - Chief complaint Chief Complaint: Back Pain - History obtained from History obtained from: Patient - Additional information Additional information: Patient is a 23-year-old female with a history of seizure disorder on Keppra presenting for evaluation of left-sided low back pain radiating to the left buttock and into the left leg for the past 1 week. Denies any known injury or trauma. Reports having had similar symptoms when she was with her son. Denies current . No bowel or bladder incontinence, numbness or tingling. Denies leg weakness. Does not take a blood thinner. No history of IV drug use. No fevers. 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 - Present Medications Home Medications: Ambulatory Orders Medication Instructions Recorded Confirmed Doxylamine Succinate [Unisom Sleep 25 mg PO Q6H PRN #15 tablet 08/18/22 Aid] Metoclopramide [Reglan] 10 mg PO BID PRN 08/18/22 08/18/22 Cyclobenzaprine [Flexeril] 10 mg PO TID PRN #20 tablet 10/01/23 Ibuprofen [Motrin] 1 tablet PO Q8H PRN #30 tablet 10/01/23 Lidocaine Patch 5% [Lidoderm Patch] 1 patch TOP DAILY PRN #10 patch 10/01/23 predniSONE [Deltasone] 20 mg PO [id number] #21 tab 10/01/23 - Allergies Allergies/Adverse Reactions: Allergies Allergy/AdvReac Type Severity Reaction Status Date / Time orange Allergy Hives Verified 10/30/22 10:54 orange juice Allergy Hives Verified 10/30/22 10:54 - Social History Does the pt smoke?: No Smoking Status: Never smoker Does the pt drink ETOH?: Yes Does the pt have substance abuse?: Yes - Immunizations Immunizations are current?: Yes PD ED PE NORMAL - General General: Alert and oriented X 3, No acute distress, Well developed/nourished - HEENT HEENT: Atraumatic - Neck Neck: Supple, no meningeal sign - Cardiac Cardiac: RRR, Strong equal pulses - Respiratory Respiratory: No respiratory distress, Clear bilaterally - Abdomen Abdomen: Soft, Non tender, Non distended - Back Back: No spinal TTP, Other (Left low lumbar tenderness to palpation into the l eft buttock) - Extremities Extremities: No edema, No calf tenderness / cord, Other (Normal strength in bilateral hip flexion, knee extension and flexion, ankle dorsiflexion and plantarflexion) - Neuro Neuro: Alert and oriented X 3, No motor deficit, Normal speech Results - Vitals Vitals: Vital Signs - 24 hr 10/01/23 12:14 Temperature 36.5 C Heart Rate 92 Respiratory 15 Rate Blood Pressure 134/80 H O2 Saturation 99 Oxygen O2 Source Room air PD Medical Decision Making - ED course ED course: Patient with left-sided back pain radiating into the left buttock and left leg. No red flag signs or symptoms in regards to her back pain. Vital signs are stable. No trauma or known injury. History and exam are suggestive of a lumbar radiculopathy. Discussed options for treatment and patient is agreeable to trial of muscle relaxers, anti-inflammatories, lidocaine patches and prednisone taper. She is counseled on need [facility] She is advised on concerning symptoms to return for. Departure - Departure Disposition: 01 Home, Self Care Clinical Impression: Radiculopathy Condition: Stable Instructions: Lumbar Radiculopathy Prescriptions: predniSONE [Deltasone] 20 mg PO [id number] #21 tab Cyclobenzaprine [Flexeril] 10 mg PO TID PRN #20 tablet PRN Reason: Spasms Lidocaine Patch 5% [Lidoderm Patch] 1 patch TOP DAILY PRN #10 patch PRN Reason: pain Ibuprofen [Motrin] 1 tablet PO Q8H PRN #30 tablet PRN Reason: PAIN &/OR FEVER Comments: Your prescriptions were [facility] [place]. Please have close Follow-up with [facility] [place] [facility]. I suspect your symptoms are related to a pinched nerve like sciatica. You can do a Google search for sciatica stretches that may help with your symptoms. Return to the ER with any worsening symptoms. One of the medications were prescribed as a muscle relaxer. This may make you drowsy so I would not recommend driving while taking this medication. Discharge Date/Time: 10/01/23 12:56
== END 2023-10-01 12:56 | disposition home or self-care (01) ==
LOC: ED 11:52
DX: M54.16 Radiculopathy, lumbar region (principal)
CPT/HCPCS: 99283

== ENCOUNTER 2023-12-03 07:09 | Emergency (ER) | payer OTHER ==
[2023-12-03 07:45] LABS: RAPID STREP SCREEN POSITIVE (Negative)
--- NOTE | 2023-12-03 08:00 | ED Physician Documentation ---
PD HPI URI - Stated complaint Stated Complaint: COUGH/SOA - Chief complaint Chief Complaint: Resp - History obtained from History obtained from: Patient - History of Present Illness Timing - onset: How many weeks ago (3) Timing duration: Weeks (3) Timing details: Abrupt onset, Still present, Waxing and waning (had URI with cough and aches/fevers 3 weeks ago, was improving except for some congestion and cough until 3 days ago with new onset of sore throat, fevers, pain swallowing.) Associated symptoms: Fever, Chills, Ear pain (right), Sore throat. No: Chest pain, Unilateral edema Contributing factors: No: Sick contact Similar symptoms before: No diagnosis (presumed URI/viral few weeks ago and now sick again.) Review of Systems Constitutional: reports: Fever, Chills, Myalgias Nose: reports: Congestion, Sinus pressure / pain Throat: reports: Sore throat (few days) Respiratory: reports: Cough (persistent from 3 weeks ago) PD PAST MEDICAL HISTORY - Past Medical History Past Medical History: Yes Cardiovascular: None Respiratory: None Neuro: None, Seizure disorder Endocrine/Autoimmune: None GI: GERD : None Musculoskeletal: None Derm: None - Past Surgical History 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 - Present Medications Home Medications: Ambulatory Orders Medication Instructions Recorded Confirmed Doxylamine Succinate [Unisom Sleep 25 mg PO Q6H PRN #15 tablet 08/18/22 Aid] Metoclopramide [Reglan] 10 mg PO BID PRN 08/18/22 08/18/22 Cyclobenzaprine [Flexeril] 10 mg PO TID PRN #20 tablet 10/01/23 Ibuprofen [Motrin] 1 tablet PO Q8H PRN #30 tablet 10/01/23 Lidocaine Patch 5% [Lidoderm Patch] 1 patch TOP DAILY PRN #10 patch 10/01/23 predniSONE [Deltasone] 20 mg PO [id number] #21 tab 10/01/23 Albuterol Sulf [Ventolin Hfa 2 puffs INH QID #1 each 12/03/23 Inhaler] HYDROcod/ACETAM 5/325 [[place] 5/325] 1 ea PO Q6H PRN #14 tablet 12/03/23 Penicillin V Potassium 500 mg PO Q6HR #28 tablet 12/03/23 dexAMETHasone [Decadron] 4 mg PO DAILY #5 tablet 12/03/23 - Allergies Allergies/Adverse Reactions: Allergies Allergy/AdvReac Type Severity Reaction Status Date / Time orange Allergy Hives Verified 12/03/23 07:28 orange juice Allergy Hives Verified 12/03/23 07:28 - Social History Does the pt smoke?: No Smoking Status: Never smoker Does the pt drink ETOH?: Yes Does the pt have substance abuse?: Yes - Immunizations Immunizations are current?: Yes PD ED PE NORMAL - Vitals Vital signs reviewed: Yes - General General: Alert and oriented X 3, No acute distress, Well developed/nourished - HEENT HEENT: No: Pharynx benign (redness with swelling of tonsillar area without focal swelling. Normal voice and swallowing though appears to hurt. ) - Neck Neck: Supple, no meningeal sign, Other (anterior adenopathy bilaterally. ) - Cardiac Cardiac: No: RRR (regular but tachycardic. ) - Respiratory Respiratory: Clear bilaterally - Abdomen Abdomen: Soft, Non tender, No organomegaly - Derm Derm: Normal color, Warm and dry Results - Vitals Vitals: Vital Signs - 24 hr 12/03/23 12/03/23 07:23 08:57 Temperature 37 C 37.0 C Heart Rate 124 H 110 H Respiratory 18 15 Rate Blood Pressure 129/83 H 128/62 O2 Saturation 95 98 Oxygen O2 Source Room air - Labs Labs: Laboratory Tests 12/03/23 12/03/23 07:30 07:30 Nasal Adenovirus (PCR) NOT DETECTED Nasal B. parapertussis DNA (PCR) NOT DETECTED Nasal Coronavir 229E PCR NOT DETECTED Nasal Coronavir HKU1 PCR NOT DETECTED Nasal Coronavir NL63 PCR NOT DETECTED Nasal Coronavir OC43 PCR NOT DETECTED Nasal Enterovir/Rhinovir PCR NOT DETECTED Nasal Influenza B PCR NOT DETECTED Nasal Influenza A PCR NOT DETECTED Nasal Parainfluen 1 PCR NOT DETECTED Nasal Parainfluen 2 PCR NOT DETECTED Nasal Parainfluen 3 PCR NOT DETECTED Nasal Parainfluen 4 PCR NOT DETECTED Nasal RSV (PCR) NOT DETECTED Nasal B.pertussis DNA PCR NOT DETECTED Nasal C.pneumoniae (PCR) NOT DETECTED Martin Human Metapneumo PCR NOT DETECTED Nasal M.pneumoniae (PCR) NOT DETECTED Nasal SARS-CoV-2 (PCR) NOT DETECTED Group A Strep Rapid POSITIVE H PD Medical Decision Making - ED course Complexity details: reviewed results, considered differential (negative viral PCR but presume had some viral illness with initial illness few weeks ago, then persistent cough. Now with acute sore throat that appears strep. positive test. Can treat Penicillin. For persistent viral cough, MDI and steroids. short term hydrocodone for cough and throat pain. ), d/w patient Departure - Departure Disposition: 01 Home, Self Care Clinical Impression: Persistent cough, Upper respiratory infection, Acute streptococcal pharyngitis Condition: Stable Record reviewed to determine appropriate education?: Yes Instructions: ED Upper Resp Infec No Abx Tx, ED Strep Pharyngitis Conf Follow-Up: [facility] [Provider Group] Prescriptions: Penicillin V Potassium 500 mg PO Q6HR #28 tablet dexAMETHasone [Decadron] 4 mg PO DAILY #5 tablet HYDROcod/ACETAM 5/325 [[place] 5/325] 1 ea PO Q6H PRN #14 tablet PRN Reason: Pain Albuterol Sulf [Ventolin Hfa Inhaler] 2 puffs INH QID #1 each Comments: Your viral panel test is negative for the major viruses. It is possible you had one of the viruses currently going around such as RSV or rhinovirus or even COVID and the infectious portion is done but still having a persistent inflammation with your coughing. This cough and bronchial irritation can last for a month or more sometimes. Your strep test is positive and would account for your newer symptoms of the sore throat and sinus and ear pain and congestion. This should be treatable fairly easily with antibiotics for the next week. You should notice considerable improvement over the first 2 to 3 days. For the sore throat as well as the coughing in particular, I would also add Decadron steroid for inflammation daily for the next 5 days. You were given a dose here today. I would also suggest an inhaler 2 to 3 puffs 4 times daily for the next several days to week to help with your cough and breathing. You can continue this for a few weeks until you are all better. For the cough itself, since other modalities and medicines have not helped, we can have dual treatment of your throat pain as well as a cough with hydrocodone every 6 hours or so if needed. I sent prescriptions to your preferred pharmacy. I would anticipate improvement in all your symptoms over the next several days though the coughing itself might persist to some degree for a few more weeks. I am prescribing a short course of narcotic pain medication for you. These are potentially dangerous and addictive medications that should be used carefully. These medications may constipate you. Take an [id number] stool softener such as docusate twice daily with plenty of water while taking these medications. If you go 24 hours without a bowel movement, take [id number] MiraLAX, per package instructions. Do not drink or drive while taking these medications. If you received narcotic or sedating medications while in the emergency department do not drive for 24 hours. Store this medication in a safe, secure place and out of reach of children. It is a violation of federal law to give or sell this medication to another person or to use in a manner other than prescribed. The ED will not refill narcotic prescriptions, including prescriptions lost or stolen. You can dispose of unwanted medications at the [facility]'s office or at several pharmacies such as [facility]. Forms: PCP List Discharge Date/Time: 12/03/23 08:58
[2023-12-03 08:27] LABS: CORONAVIRUS 229E-RESP PCR NOT DETECTED; CORONAVIRUS HKU1-RESP PCR NOT DETECTED
[2023-12-03 08:28] LABS: B. PARAPERTUSSIS- RESP PCR PAN NOT DETECTED; B. PERTUSSIS- RESP PCR PANEL NOT DETECTED; C. PNEUMONIAE- RESP PCR PANEL NOT DETECTED; CORONAVIRUS NL63-RESP PCR NOT DETECTED; CORONAVIRUS OC43-RESP PCR NOT DETECTED; HUMAN METAPNEUMOVIRUS NOT DETECTED; INFLUENZA A- RESP PCR PANEL NOT DETECTED; INFLUENZA B - RESP PCR PANEL NOT DETECTED; M. PNEUMONIAE- RESP PCR PANEL NOT DETECTED; PARAINFLUENZA VIRUS 1 NOT DETECTED; PARAINFLUENZA VIRUS 2 NOT DETECTED; PARAINFLUENZA VIRUS 3 NOT DETECTED; PARAINFLUENZA VIRUS 4 NOT DETECTED; RHINOVIRUS/ENTEROVIRUS NOT DETECTED; RSV- RESP PCR PANEL NOT DETECTED; SARS-CoV-2 -RESP PCR PANEL NOT DETECTED
[2023-12-03] MEDS: PENICILLIN VK 250 MG TABLET PO STA (08:43)
[2023-12-03] MEDS: ACETAMINOPHEN 325 MG TABLET PO STA (08:43)
[2023-12-03] MEDS: HYDROcod/ACETAM 5/325 MG TABLET PO STA (08:43)
[2023-12-03] MEDS: dexAMETHasone 4 MG TABLET PO STA (08:43)
[2023-12-03 09:01] VITALS: BP 128/62; O2SAT 98
== END 2023-12-03 08:58 | disposition home or self-care (01) ==
LOC: ED 07:09
DX: R05.3 Chronic cough (principal); J06.9 Acute upper respiratory infection, unspecified; J02.0 Streptococcal pharyngitis
CPT/HCPCS: 87430; 87633; 99283; 99284; A9270; J8540

== ENCOUNTER 2024-03-19 09:10 | Emergency (ER) | payer OTHER ==
--- NOTE | 2024-03-19 09:24 | ED Physician Documentation ---
PD HPI ABD PAIN - Stated complaint Stated Complaint: ABD PX/BACK PX - Chief complaint Chief Complaint: Abd Pain - History obtained from History obtained from: Patient - Additional information Additional information: 23-year-old woman with history of seizure disorder, last seizure in October of this year, and tubal ligation but no other abdominal surgeries presents with initially epigastric now right upper quadrant pain that awoke her at 6 AM. She says she was pain-free yesterday but the gentleman at the bedside says she was complaining of upper abdominal pain yesterday. She is nauseous, but no vomiting. She is never had this before. Pain does radiate to the back. 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 - Present Medications Home Medications: Ambulatory Orders Medication Instructions Recorded Confirmed Doxylamine Succinate [Unisom Sleep 25 mg PO Q6H PRN #15 tablet 08/18/22 Aid] Metoclopramide [Reglan] 10 mg PO BID PRN 08/18/22 08/18/22 Cyclobenzaprine [Flexeril] 10 mg PO TID PRN #20 tablet 10/01/23 Ibuprofen [Motrin] 1 tablet PO Q8H PRN #30 tablet 10/01/23 Lidocaine Patch 5% [Lidoderm Patch] 1 patch TOP DAILY PRN #10 patch 10/01/23 predniSONE [Deltasone] 20 mg PO [id number] #21 tab 10/01/23 Albuterol Sulf [Ventolin Hfa 2 puffs INH QID #1 each 12/03/23 Inhaler] HYDROcod/ACETAM 5/325 [[place] 5/325] 1 ea PO Q6H PRN #14 tablet 12/03/23 Penicillin V Potassium 500 mg PO Q6HR #28 tablet 12/03/23 dexAMETHasone [Decadron] 4 mg PO DAILY #5 tablet 12/03/23 HYDROcod/ACETAM 5/325 [[place] 5/325] 1 - 2 tab PO Q6H PRN #10 tablet 03/19/24 Meloxicam [Mobic] 7.5 mg PO BID PRN #20 tablet 03/19/24 Ondansetron Odt [Zofran] 4 mg TL Q6H PRN #10 tablet 03/19/24 - Allergies Allergies/Adverse Reactions: Allergies Allergy/AdvReac Type Severity Reaction Status Date / Time orange Allergy Hives Verified 03/19/24 09:17 orange juice Allergy Hives Verified 03/19/24 09:17 - Social History Does the pt smoke?: No Smoking Status: Never smoker Does the pt drink ETOH?: Yes Does the pt have substance abuse?: Yes - Immunizations Immunizations are current?: Yes PD ED PE NORMAL - Vitals Vital signs reviewed: Yes - General General: Alert and oriented X 3, Other (She appears uncomfortable and in pain) - Cardiac Cardiac: RRR, No murmur - Respiratory Respiratory: No respiratory distress, Clear bilaterally - Abdomen Abdomen: Normal bowel sounds, Other (Exquisitely tender in the right upper more than right lower quadrant with positive Jacobson sign. No other surgical signs.) - Derm Derm: No rash - Neuro Neuro: Alert and oriented X 3 Results - Vitals Vitals: Vital Signs - 24 hr 03/19/24 03/19/24 09:12 11:20 Temperature 37.0 C 36.4 C L Heart Rate 89 63 Respiratory 18 18 Rate Blood Pressure 124/91 H 101/80 O2 Saturation 99 98 Oxygen O2 Source Room air - Labs Labs: Laboratory Tests 03/19/24 03/19/24 03/19/24 09:20 09:31 09:31 WBC 8.2 RBC 4.82 Hgb 13.7 Hct 41.8 MCV 86.7 MCH 28.4 MCHC 32.8 RDW 12.8 Plt Count 264 MPV 9.8 Neut # (Auto) 4.3 Lymph # (Auto) 3.1 [place] # (Auto) 0.7 Eos # (Auto) 0.1 Baso # (Auto) 0.0 Absolute Nucleated RBC 0.00 Nucleated RBC % 0.0 Sodium 135 Potassium 3.9 Chloride 108 Carbon Dioxide 21 Anion Gap 6.0 BUN 15 Creatinine 0.6 Estimated GFR (MDRD) 123 Glucose 93 Calcium 9.1 Total Bilirubin 0.3 AST 12 ALT 21 Alkaline Phosphatase 72 Total Protein 7.1 Albumin 4.2 Globulin 2.9 Albumin/Globulin Ratio 1.4 Lipase 49 Urine Color YELLOW Urine Clarity CLEAR Urine pH 7.5 Ur Specific [place] 1.015 Urine Protein NEGATIVE Urine Glucose (UA) NEGATIVE Urine Ketones NEGATIVE Urine Occult Blood NEGATIVE Urine Nitrite NEGATIVE Urine Bilirubin NEGATIVE Urine Urobilinogen 0.2 (NORMAL) Ur Leukocyte Esterase NEGATIVE Ur Microscopic Review NOT INDICATED Urine Culture Comments NOT INDICATED Urine HCG, Qual NEGATIVE - Rads (name of study) abd sono Relevant Findings:: Prelim report reviewed PD Medical Decision Making - ED course ED course: It does seem very much like biliary colic, and her ultrasound shows sludge with just a trace of fluid around the gallbladder but no biliary ductal dilatation. Her labs were normal without leukocytosis or evidence of biliary obstruction. She was feeling better after 1 dose of Dilaudid and Zofran but did not like the side effects of the Dilaudid. Discussed return precautions and follow-up. Also discussed that I do not think this is appendicitis given the location of the pain and she is nontender in the right lower quadrant prior to discharge, but to return if that were to become the predominant source of pain. Departure - Departure Disposition: 01 Home, Self Care Clinical Impression: Biliary colic Condition: Good Record reviewed to determine appropriate education?: Yes Instructions: ED Gallstone W Biliary Colic Prescriptions: Meloxicam [Mobic] 7.5 mg PO BID PRN #20 tablet PRN Reason: Pain HYDROcod/ACETAM 5/325 [[place] 5/325] 1 - 2 tab PO Q6H PRN #10 tablet PRN Reason: Pain Ondansetron Odt [Zofran] 4 mg TL Q6H PRN #10 tablet PRN Reason: Nausea / Vomiting Comments: You are seen today for what sounds like a gallbladder issue and you did have sludge in your gallbladder. Return if you worsen or if the pain moves to the bottom right part of your abdomen as we discussed. That said, at this point your labs look okay and it really is not consistent with something like appendicitis. Follow-up with the surgical clinic calling tomorrow for an appointment. They may want to monitor your symptoms versus do further symptom testing versus consideration for cholecystectomy. I sent your prescription electronically to the [facility] in [place]. I am prescribing a short course of narcotic pain medication for you. These are potentially dangerous and addictive medications that should be used carefully. These medications may constipate you. Take an [id number] stool softener (docusate) twice daily with plenty of water while taking these medications. If you go 24 hours without a bowel movement, take [id number] miralax, per package instructions. Do not drink or drive while taking these medications. If you received narcotic or sedating medications while in the emergency department, do not drive for 24 hours. Store this medication in a safe, secure place and out of reach of children. It is a violation of federal law to give or sell this medication to another person or to use in a manner other than prescribed. The ED will not refill narcotic prescriptions, including prescriptions lost or stolen. To dispose of unwanted medications: 1. [facility] provides a drop box for medication in pill form only (no liquids) 8:00 am to 4:30 p.m. Wednesday-Wednesday in the lobby of the [facility], [address] [place] [address]. Empty pills into ziplock bag before disposal. Call [phone] for information. 2.[employer] is a free service available to all [facility] residents. Go to [email or web address] Note that many narcotic pain relievers also contain Tylenol/acetaminophen. Please ensure that your total dose of acetaminophen from all sources does not exceed 3 g (3000 mg) per day. Forms: PCP List Discharge Date/Time: 03/19/24 11:20
[2024-03-19 09:26] LABS: BILIRUBIN,URINE NEGATIVE (NEGATIVE); CLARITY,URINE CLEAR (CLEAR); GLUCOSE, URINE (UA) NEGATIVE (NEGATIVE); KETONES,URINE (UA) NEGATIVE (NEGATIVE); LEUKOCYTE ESTERASE, URINE NEGATIVE (NEGATIVE); NITRITE,URINE NEGATIVE (NEGATIVE); OCCULT BLOOD,URINE NEGATIVE (NEGATIVE); PH,URINE 7.5 PH (5.0-7.5); PROTEIN,URINE NEGATIVE (NEGATIVE); UROBILINOGEN,URINE 0.2 (NORMAL) E.U./dL (NORMAL)
[2024-03-19 09:27] LABS: HCG UR QUAL NEGATIVE
[2024-03-19] MEDS: ONDANSETRON 4 MG/2 ML VIAL IVP STA ×2 (09:33→11:11)
[2024-03-19] MEDS: HYDROmorphone 1 MG/ML CARPUJECT IVP STA (09:33)
[2024-03-19 09:35] LABS: BASOPHILS % (AUTO) 0.4 %; EOSINOPHILS # (AUTO) 0.1 10^3/uL (0.0-0.7); EOSINOPHILS % (AUTO) 1.3 %; HCT - HEMATOCRIT 41.8 % (37.0-47.0); HGB - HEMOGLOBIN 13.7 g/dL (12.0-16.0); LYMPHOCYTES # (AUTO) 3.1 10^3/uL (1.5-3.5); LYMPHOCYTES % (AUTO) 37.9 %; MEAN CORPUSCULAR HEMOGLOBIN 28.4 pg (27.0-31.0); MEAN CORPUSCULAR HGB CONC 32.8 g/dL (32.0-36.0); MEAN CORPUSCULAR VOLUME 86.7 fL (81.0-99.0); MEAN PLATELET VOLUME 9.8 fL (7.9-10.8); MONOCYTES # (AUTO) 0.7 10^3/uL (0.0-1.0); NEUTROPHILS # (AUTO) 4.3 10^3/uL (1.5-6.6); NEUTROPHILS % (AUTO) 51.9 %; PLT - PLATELET COUNT 264 10^3/uL (130-450); RED BLOOD COUNT 4.82 10^6/uL (4.20-5.40); RED CELL DISTRIBUTION WIDTH 12.8 % (12.0-15.0); WHITE BLOOD COUNT 8.2 x10^3/uL (4.8-10.8)
[2024-03-19 09:52] LABS: ALBUMIN 4.2 g/dL (3.2-5.5); ALBUMIN/GLOBULIN RATIO 1.4 (1.0-2.2); BILIRUBIN,TOTAL 0.3 mg/dL (0.2-1.0); CALCIUM 9.1 mg/dL (8.5-10.3); CREATININE 0.6 mg/dL (0.6-1.3); POTASSIUM 3.9 mmol/L (3.5-4.5); TOTAL PROTEIN 7.1 g/dL (6.4-8.9)
--- NOTE | 2024-03-19 11:09 | Ultrasound Report ---
PROCEDURE: Abdomen Limited INDICATIONS: Right upper quadrant pain TECHNIQUE: Real-time focused scanning was performed of the abdomen, with image documentation. COMPARISONS: None. FINDINGS: Liver: The liver demonstrates normal size. The liver demonstrates moderately increased echogenicit y, which limits ultrasound sensitivity for detection of masses. Gallbladder: Layering sludge can be seen, without shadowing gallstones. The gallbladder wall does not appear thickened. There is trace pericholecystic fluid. The sonographic Jacobson's sign is negative. Biliary ducts: Intrahepatic bile ducts are non-dilated. Extrahepatic bile duct caliber measures 2 m m. Normal is 6-7 mm or less in diameter, or 10 mm or less post-cholecystectomy. Pancreas: Visualized portions of the pancreas are sonographically normal. Right kidney: Normal in size and echotexture. Right kidney measures 9.9 cm long. No hydronephrosis o r nephrolithiasis. No solid masses. No complex renal cystic lesions which require follow-up. IVC: Intrahepatic inferior vena cava is patent. Miscellaneous: No free abdominal fluid. IMPRESSION: Layering sludge can be seen within the gallbladder, without shadowing gallstones. There is trace katie cholecystic fluid. No additional sonographic signs of cholecystitis are seen. No biliary dilatation. Mild fatty liver infiltration. Note: Concordant preliminary findings given by the slubber tender upon the completion of the examination to Dr. Hoffman at 10:45 AM on 03/19/2024. Reviewed by: Frandy Clayton MD on 03/19/2024 10:07 AM JEREMY Approved by: Frandy Clayton MD on 03/19/2024 10:07 AM JEREMY Station ID: [id number]
[2024-03-19] MEDS: KETOROLAC 15 MG/ML VIAL IVP STA (11:12)
[2024-03-19 11:26] VITALS: BP 101/80; O2SAT 98
== END 2024-03-19 11:20 | disposition home or self-care (01) ==
LOC: ED 09:10
DX: K80.50 Calculus of bile duct without cholangitis or cholecystitis without obstruction (principal); Z79.899 Other long term (current) drug therapy
CPT/HCPCS: 36415; 76705; 80053; 81003; 81025; 83690; 85025; 96374; 96375; 99284; J1170; 81001; 87086

== ENCOUNTER 2024-04-05 16:29 | Emergency (ER) | payer OTHER ==
[2024-04-05 16:54] VITALS: BP 107/72; O2SAT 100
--- NOTE | 2024-04-05 17:13 | ED Physician Documentation ---
History of Present Illness - Stated complaint Stated Complaint: LT HAND PX - Chief complaint Chief Complaint: Ext Problem - History obtained from History obtained from: Patient - Additonal information Additional information: 23-year-old female who presents with Left thumb pain after biopsy of her left fingernail 2 days ago. To punch biopsy. She states she has excruciating pain and is taking oxycodone 10 mg as well as Tylenol and doxycycline without relief. She has not attempted any NSAIDs. No fevers. No increase in drainage, no increased swelling or erythema. 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 - Present Medications Home Medications: Ambulatory Orders Medication Instructions Recorded Confirmed Doxylamine Succinate [Unisom Sleep 25 mg PO Q6H PRN #15 tablet 08/18/22 Aid] Metoclopramide [Reglan] 10 mg PO BID PRN 08/18/22 08/18/22 Cyclobenzaprine [Flexeril] 10 mg PO TID PRN #20 tablet 10/01/23 Ibuprofen [Motrin] 1 tablet PO Q8H PRN #30 tablet 10/01/23 Lidocaine Patch 5% [Lidoderm Patch] 1 patch TOP DAILY PRN #10 patch 10/01/23 predniSONE [Deltasone] 20 mg PO [id number] #21 tab 10/01/23 Albuterol Sulf [Ventolin Hfa 2 puffs INH QID #1 each 12/03/23 Inhaler] HYDROcod/ACETAM 5/325 [[place] 5/325] 1 ea PO Q6H PRN #14 tablet 12/03/23 Penicillin V Potassium 500 mg PO Q6HR #28 tablet 12/03/23 dexAMETHasone [Decadron] 4 mg PO DAILY #5 tablet 12/03/23 HYDROcod/ACETAM 5/325 [[place] 5/325] 1 - 2 tab PO Q6H PRN #10 tablet 03/19/24 Meloxicam [Mobic] 7.5 mg PO BID PRN #20 tablet 03/19/24 Ondansetron Odt [Zofran] 4 mg TL Q6H PRN #10 tablet 03/19/24 - Allergies Allergies/Adverse Reactions: Allergies Allergy/AdvReac Type Severity Reaction Status Date / Time orange Allergy Hives Verified 04/05/24 16:52 orange juice Allergy Hives Verified 04/05/24 16:52 - Social History Does the pt smoke?: No Smoking Status: Never smoker Does the pt drink ETOH?: Yes Does the pt have substance abuse?: Yes - Immunizations Immunizations are current?: Yes - POLST Patient has POLST: No PD ED PE NORMAL - Vitals Vital signs reviewed: Yes - General General: Alert and oriented X 3, No acute distress, Well developed/nourished - Derm Derm: Normal color, Warm and dry, Other (There is a punch biopsy of the left th umbnail with [address] at the thumbnail matrix. No erythema or purulent drainage, using a small amount of blood.) - Extremities Extremities: Other (Tenderness of the left some without swelling or erythema. Punch biopsy noted to the nail and matrix, no sign of infection) Results - Vitals Vitals: Vital Signs - 24 hr 04/05/24 16:48 Temperature 36.2 C L Heart Rate 82 Respiratory 20 Rate Blood Pressure 107/72 O2 Saturation 100 Oxygen O2 Source Room air PD Medical Decision Making - ED course Complexity details: re-evaluated patient, d/w patient ED course: 23 old female presented with left thumb pain after a punch biopsy 2 days ago. She is on antibiotics and pain medicine. Dressing removed and the thumb appears as expected for postprocedure, there is small amount of oozing from the punch biopsy but no erythema no purulent drainage no signs of infection. There is no swelling. Patient has good range of motion of the thumb. She is already on narcotic pain medication and Tylenol, as well as doxycycline. I recommended adding ibuprofen for anti-inflammatory, to 600 every 6 hours and she can alternate with Tylenol if needed. I also offered her a digital block which patient did wish to proceed with. After discussion of risk vs benefits, she verbally consented. Using a 27g needle, she was digitally blocked with 0.5% bupivacaine with epinephrine, 4 mL. Tolerated well with excellent pain relief. She was discharged home in stable condition with return precautions. Departure - Departure Disposition: 01 Home, Self Care Clinical Impression: Post-op pain Condition: Good Comments: Please continue the oxycodone as needed and add ibuprofen 600mg every 6 hours to help with pain control. You can alternate this with the Tylenol that you are taking. Please continue the antibiotics. At this time there is no sign of infection or complication and I anticipate that you will have improvement in your pain in the next day or 2. Continue wound care and follow up as previously instructed. Forms: PCP List
[2024-04-05] MEDS: BUPIVACAINE 0.5%-EPI 1:200000 PF 10 ML VIAL SUBQ STA (17:18)
[2024-04-05] MEDS: BUPIVACAINE 0.5%-EPI 1:200000 PF 30 ML VIAL SUBQ ONE (17:19)
== END 2024-04-05 17:51 | disposition home or self-care (01) ==
LOC: ED 16:29
DX: G89.18 Other acute postprocedural pain (principal); M79.645 Pain in left finger(s); Z79.899 Other long term (current) drug therapy
CPT/HCPCS: 64450; 99283

== ENCOUNTER 2024-04-17 06:23 | Day surgery (SDC) | payer OTHER ==
[~2024-04-17 06:23] MED LIST: DEXAMETHASONE 4 MG/ML VIAL ONE; ETOMIDATE 40 MG/20 ML VIAL IVP ONE; MIDAZOLAM 2 MG/2 ML VIAL ONE; ONDANSETRON 4 MG/2 ML VIAL ONE; PROPOFOL 200 MG/20 ML VIAL IVP ONE; ROCURONIUM 50 MG/5 ML VIAL ONE; ceFAZolin 2 GM VIAL ONE; fentaNYL 100 MCG/2 ML VIAL ONE; metroNIDAZOLE 500 MG/100 ML 500 MG/100 ML BAG ONE
[2024-04-17] MEDS ORDERED: MORPHINE 2 MG/ML CARPUJECT IVP PRN (06:37)
[2024-04-17] MEDS ORDERED: ATROPINE ABBOJECT 1 MG/10 ML SYRINGE IVP PRN (06:37)
[2024-04-17] MEDS ORDERED: fentaNYL 100 MCG/2 ML VIAL IVP PRN (06:37)
[2024-04-17] MEDS ORDERED: ONDANSETRON 4 MG/2 ML VIAL IVP PRN ×2 (06:37→09:31)
[2024-04-17] MEDS ORDERED: NALOXONE 0.4 MG/ML VIAL IVP PRN (06:37)
[2024-04-17] MEDS ORDERED: HYDROmorphone 0.5 MG/0.5 ML SYRINGE IVP PRN ×2 (06:37→09:31)
[2024-04-17] MEDS ORDERED: ePHEDrine 50 MG/ML VIAL IVP PRN (06:37)
[2024-04-17 06:59] LABS: HCG UR QUAL NEGATIVE
[2024-04-17] MEDS ORDERED: LACTATED RINGERS 1,000 ML IV SCH (07:00)
[2024-04-17] MEDS: ACETAMINOPHEN 500 MG TABLET PO ONE (07:02)
[2024-04-17] MEDS ORDERED: LIDOCAINE 1%-EPI 1:100000 20 ML MDV ONE (07:10)
[2024-04-17] MEDS ORDERED: BUPIVACAINE 0.5% PF 10 ML VIAL ONE (07:11)
[2024-04-17] MEDS ORDERED: iohexoL-240 10 ML VIAL IVP ONE (07:11)
--- NOTE | 2024-04-17 07:15 | ANESTHESIA ---
Pre-Anesthesia VS, & Labs - Diagnosis Chronic Cholecystitis - Procedure Lap CHolecystectomy Vital Signs: Temp Pulse Resp BP Pulse Ox O2 Flow Rate 36.3 C L 82 16 110/76 98 04/17/24 06:42 04/17/24 06:42 04/17/24 06:42 04/17/24 06:42 04/17/24 06:42 Height: 5 ft 3 in Weight (kg): 79.4 kg Body Mass Index: 31.0 BMI Classification: Obese - Is Patient ?: No Home Medications and Allergies Home Medications: Ambulatory Orders Acetaminophen [Tylenol] 1,000 mg PO Q4-6H PRN 04/14/24 Levetiracetam [Keppra] 2,000 mg PO BID 04/14/24 Active Medications Atropine Sulfate (Atropine Abboject 1 Mg/10 Ml Syringe) 0.5 mg IVP Q5M PRN PRN Reason: Bradycardia Stop: 04/18/24 06:37 Ephedrine Sulfate (Ephedrine 50 Mg/Ml Vial) 10 mg IVP Q5M PRN PRN Reason: HYPOTENSION Stop: 04/18/24 06:37 Fentanyl (Fentanyl 100 Mcg/2 Ml Vial) 25 - 50 mcg IVP Q5M PRN PRN Reason: BREAKTHROUGH PAIN (2nd Choice) Stop: 04/18/24 06:37 Hydromorphone HCl (Hydromorphone 0.5 Mg/0.5 Ml Syringe) 0.2 - 0.6 mg IVP Q5M PRN PRN Reason: PAIN (First Choice) Stop: 04/18/24 06:37 Lactated Ringer's (Lr) 1,000 mls @ 100 mls/hr IV .Q10H BAKARI Stop: 04/17/24 16:59 Morphine Sulfate (Morphine 2 Mg/Ml Carpuject) 2 - 4 mg IVP Q5M PRN PRN Reason: PAIN (3rd Choice) Stop: 04/18/24 06:37 Naloxone HCl (Naloxone 0.4 Mg/Ml Vial) 0.1 mg IVP Q2M PRN PRN Reason: RESP RATE <8 Stop: 04/18/24 06:37 Ondansetron HCl (Ondansetron 4 Mg/2 Ml Vial) 4 mg IVP ONCE PRN PRN Reason: N/V (First Choice) Stop: 04/18/24 06:37 Acetaminophen [Tylenol] 1,000 mg PO Q4-6H PRN 04/14/24 Levetiracetam [Keppra] 2,000 mg PO BID 04/14/24 Allergies/Adverse Reactions: Allergies Allergy/AdvReac Type Severity Reaction Status Date / Time orange juice Allergy Intermediate Hives Verified 04/14/24 12:32 orange Allergy Hives Verified 04/14/24 12:32 Anes History & Medical History - Medical History Cardiovascular: reports: None Pulmonary: reports: None Gastrointestinal: reports: GERD Urinary: reports: None, Chronic bladder infection Neuro: reports: None, Seizure disorder Musculoskeletal: reports: Fibromyalgia, Other Endocrine/Autoimmune: reports: None Blood Disorders: reports: None Skin: reports: None Smoking Status: Never smoker - Surgical History Gynecologic: reports: section, Tubal ligation Exam General: Alert, Oriented x3, Cooperative Dental: WNL Mouth Openin Fingerbreadth Mallampati classification: III Thyromental Distance: less than 4 cm Plan Anesthesia Type: General Consent for Procedure(s) Verified and Reviewed: Yes Code Status: Attempt Resuscitation ASA classification: 2-Mild systemic disease Is this case an emergency?: No
[2024-04-17] MEDS ORDERED: PHENYLEPHRINE HCL 0.5 MG/5 ML AMPULE ONE (08:04)
[2024-04-17] MEDS ORDERED: GLYCOPYRROLATE 1 MG/5 ML VIAL ONE (08:06)
[2024-04-17] MEDS ORDERED: SUGAMMADEX 200 MG/2 ML VIAL IVP ONE (08:26)
[2024-04-17] MEDS: LIDOCAINE MPF 2%-EPI 1:200000 20 ML VIAL SUBQ ONE (08:29)
[2024-04-17] MEDS: iohexoL-240 10 ML VIAL IVP ONE (08:30)
[2024-04-17] MEDS: BUPIVACAINE 0.5% PF 30 ML VIAL SUBQ ONE (08:30)
[2024-04-17] MEDS ORDERED: diphenhydrAMINE INJ 50 MG/ML VIAL ONE (08:45)
[2024-04-17] MEDS ORDERED: fentaNYL 100 MCG/2 ML VIAL ONE (08:45)
[2024-04-17] MEDS ORDERED: KETOROLAC 30 MG/ML VIAL ONE (09:16)
[2024-04-17] MEDS ORDERED: IBUPROFEN 600 MG TABLET PO PRN (09:31)
[2024-04-17] MEDS ORDERED: ACETAMINOPHEN 325 MG TABLET PO PRN (09:31)
--- NOTE | 2024-04-17 09:34 | OPERATIVE REPORT ---
Operative Report - General Procedure Date: 04/17/24 Planned Procedure: Laparoscopic cholecystectomy with IntraOp cholangiogram, possible open Pre-Op Diagnosis: 1. Chronic cholecystitis Procedure Performed: Laparoscopic cholecystectomy with attempted intraoperative cholangiogram Post Op Diagnosis: 1. Chronic cholecystitis - Procedure Note Primary Surgeon: Dr. Tala Nesbitt Anesthesia Provider: Michael Mesa CRNA Anesthesia Technique: General ET tube, Local Pathology: Gallbladder and contents Estimated Blood Loss (mL): 20 Indications: The patient has had episodic right upper quadrant pain causing her to come to the emergency room. She was identified to have gallstones on workup and imaging. She was seen and evaluated in the clinic where we discussed the risks, benefits, and alternatives of laparoscopic cholecystectomy. Risks include but are not limited to bleeding, infection, damage to surrounding structures including the common bile duct, and the possible need for further surgeries or procedures. The patient voiced understanding, her questions were answered, and she wished to proceed. A consent was signed by the patient in clinic prior to surgery. Findings: 1.Small cystic duct, unable to cannulate for cholangiogram 2. Normal-appearing anatomy 3. Gallstones present Complications: None - Other Other Information/Narrative: The patient was brought to the operative suite and placed in the supine position. General endotracheal anesthesia was induced. Preoperative antibiotics were given. ERAS protocol was followed. A preop surgical timeout was performed. Local anesthetic was injected into the skin and subcutaneous tissues just inferior to the umbilicus. An 11 blade scalpel was used to make a 5 mm transverse skin incision in this location. Next, a hemostat was used to spread the tissues down to the level of the fascia and a Dede clamp was used to grasp and elevate the umbilical stalk. A Varess needle was used to gain access to the peritoneal space. Low flow insufflation revealed low pressures and then high flow insufflation was undertaken to 15 mmHg. Next, the Varess needle was removed and a 5 mm laparoscopic port was inserted in this location. Through this port, a 5 mm 30 degree laparoscope was inserted. On inspection of the abdomen no injury was caused on entry. Next, the patient was placed in reverse Trendelenburg and rotated slightly to the left. Two 5 mm ports were inserted in the right upper quadrant, one in the anterior axillary line and the other in the midclavicular line. Also, a 12 mm port was inserted in the subxiphoid region. All ports were placed by first anesthetizing the skin and subcutaneous tissues with local anesthetic, then by making an appropriate length incision with an 11 blade scalpel, and finally by placing the port under direct laparoscopic vision. Once the ports were in place, a ratcheted, toothed grasper was used to elevate the fundus of the gallbladder toward the patient's right shoulder. Next, the peritoneum was incised starting at the hilum of the gallbladder and working toward the fundus along the gallbladder liver interface on the medial and lateral aspects of the gallbladder. Next, attention was returned to the hilum of the gallbladder. The alveolar tissues in this region were taken down with blunt and sharp dissection with electrocautery taking great care not to cauterize though any tissue I could not easily see through. Two ductal structures were isolated and skeletonized such that each ductal structure could be visualized with liver present on either side. The cystic plate was also developed. At this time, it was felt that a critical view of safety had been obtained. Next, a clip was placed distally, that is toward the gallbladder, on the cystic duct and just proximal to this a ductotomy was performed. I attempted to place a cholangiogram catheter within the duct for about 15 minutes, but was unsuccessful. The duct was small. The anatomy appeared normal. The patient's LFTs were normal prior to the procedure. At this time I abandoned further efforts at performing a cholangiogram. Two clips were placed proximally on the cystic duct. The cystic duct and cystic artery were divided using laparoscopic scissors between the clips. Next the gallbladder was dissected off of the liver bed. Once it was completely freed, the gallbladder was placed in an Endo Catch bag and removed through the epigastric port. The epigastric port was replaced and suction and irrigation were used to remove any fluid from the right upper quadrant. This was done until the fluid returned was clear. Next, quarter percent Marcaine with epinephrine in the amount of 10 mL was infused into the right upper quadrant along the liver diaphragm interface to reduce to postoperative pain. Next, a laparoscopic fascial closure device was used to place a single interrupted 0 Vicryl suture at the epigastric port. This reapproximated the fascia well. The remaining ports were removed under direct laparoscopic vision and the abdomen was deflated. Next, the skin edges were reapproximated with 4-0 Monocryl in an interrupted subcuticular fashion. A sterile dressing of skin glue was placed. The patient tolerated the procedure well. The patient was extubated in the operating room and transferred to the recovery room in stable condition. There were no complications.
[2024-04-17] MEDS: LACTATED RINGERS 1,000 ML IV ONE (09:36)
[2024-04-17] MEDS ORDERED: oxyCODONE 5 MG TABLET ONE (10:24)
[2024-04-17] MEDS: oxyCODONE 5 MG TABLET PO PRN (10:25)
[2024-04-17 10:30] VITALS: BP 112/80; O2SAT 98
--- NOTE | 2024-04-17 14:17 | ANESTHESIA POST OP EVALUATION ---
Anesthesia Post Eval - Post Anesthesia Eval Vitals: Last Vital Signs Temp 36.5 C 04/17/24 10:20 Pulse 89 04/17/24 10:20 Resp 16 04/17/24 10:20 BP 112/80 04/17/24 10:20 Pulse Ox 98 04/17/24 10:20 O2 Flow Rate CV Function Including HR & BP: Stable Pain Control: Satisfactory Nausea & Vomiting: Negative Mental Status: Baseline Respiratory Status: Airway Patent Hydration Status: Satisfactory Anesthesia Complications: None
== END 2024-04-17 06:24 | disposition home or self-care (01) ==
LOC: SDS 06:23
PROVIDERS: ATTEND Surgery
PROC: 0FT44ZZ Resection of Gallbladder, Percutaneous Endoscopic Approach (ICD-10-PCS; principal; 2024-04-17 07:30)
DX: K80.10 Calculus of gallbladder with chronic cholecystitis without obstruction (principal); E66.9 Obesity, unspecified; Z68.31 Body mass index [BMI] 31.0-31.9, adult; G40.909 Epilepsy, unspecified, not intractable, without status epilepticus; M79.7 Fibromyalgia
CPT/HCPCS: 47562; 81025; A9270; C1758; J1200; J2372; J7120; Q9966

== ENCOUNTER 2024-06-14 12:40 | Emergency (ER) | payer OTHER ==
[2024-06-14 13:19] VITALS: O2SAT 100
--- NOTE | 2024-06-14 14:01 | XRAY Report ---
PROCEDURE: Ankle 3+V RT INDICATIONS: right ankle/foot pain after fall in shower. TECHNIQUE: 3 views of the ankle were acquired. COMPARISON: None. FINDINGS: Bones: No fractures or dislocations. Ankle mortise is normally aligned. No suspicious bony lesions . Soft tissues: Small tibiotalar joint effusion. Achilles tendon appears normal. IMPRESSION: No acute bony abnormality. Small ankle joint effusion. Reviewed by: Edd Henderson MD on 06/14/2024 2:00 PM PDT Approved by: Edd Henderson MD on 06/14/2024 2:00 PM PDT Station ID: [id number]
--- NOTE | 2024-06-14 14:12 | XRAY Report ---
PROCEDURE: Foot 3+V RT INDICATIONS: injury R great toe TECHNIQUE: 3 views of the foot were acquired. COMPARISON: None. FINDINGS: Bones: No fractures or dislocations. No suspicious bony lesions. Soft tissues: No tibiotalar joint effusion. Achilles tendon appears normal. IMPRESSION: No acute bony abnormality. Reviewed by: Edd Henderson MD on 06/14/2024 2:10 PM PDT Approved by: Edd Henderson MD on 06/14/2024 2:10 PM PDT Station ID: [id number]
--- NOTE | 2024-06-14 15:00 | ED Physician Documentation ---
History of Present Illness - Stated complaint Stated Complaint: RT ANKLE PX,SWELLING - Chief complaint Chief Complaint: Ext Problem - Additonal information Additional information: 24-year-old female presents emergency department for right ankle pain. She says that she slipped and fell on something in the hallway she is unsure exactly the mechanism or how she fell but she is having tenderness to her entire right ankle. She did not hit her head no history of previous ankle injuries. PD PAST MEDICAL HISTORY - Past Medical History Past Medical History: Yes Cardiovascular: None Respiratory: None Neuro: Seizure disorder Endocrine/Autoimmune: None GI: GERD FLOOR SURFACER: None : None, Chronic bladder infection HEENT: None Psych: Depression, Anxiety, Panic attacks Musculoskeletal: Fibromyalgia, Other Derm: None - Past Surgical History Past Surgical History: Yes /FLOOR SURFACER: section, Tubal ligation - Present Medications Home Medications: Ambulatory Orders Medication Instructions Recorded Confirmed Levetiracetam [Keppra] 2,000 mg PO BID 04/14/24 04/17/24 - Allergies Allergies/Adverse Reactions: Allergies Allergy/AdvReac Type Severity Reaction Status Date / Time orange juice Allergy Intermediate Hives Verified 06/14/24 13:18 orange Allergy Hives Verified 06/14/24 13:18 - Social History Does the pt smoke?: No Smoking Status: Never smoker Does the pt drink ETOH?: Yes Does the pt have substance abuse?: Yes - Immunizations Immunizations are current?: Yes - POLST Patient has POLST: No PD ED PE NORMAL - Vitals Vital signs reviewed: Yes - General General: Alert and oriented X 3, No acute distress, Well developed/nourished - Derm Derm: Normal color, Warm and dry, No rash - Extremities Extremities: No deformity, Other (right ankle: full ROM, tenderness to lateral and medial malleolous. CMS intact, strong dorsalis pedis pulse.) Results - Vitals Vitals: Vital Signs - 24 hr 06/14/24 13:11 Temperature 36.4 C L Heart Rate 74 Respiratory 17 Rate Blood Pressure 116/69 O2 Saturation 100 Oxygen O2 Source Room air - Rads (name of study) Right ankle x-rays Relevant Findings:: Final report received, EMP independent interpretation of test, Other (No acute bony abnormalities, small ankle joint effusion) Right foot x-ray Relevant Findings:: Final report received, EMP independent interpretation of test, Other (No acute bony abnormalities or findings) PD Medical Decision Making - ED course ED course: 24-year-old female presents emergency department for right ankle pain. Differentials include but are not limited to ankle sprain, contusion, fracture. X-rays of the foot and ankle were complete and no acute bony abnormalities are visualized. She most likely sprained her ankle. Unsure what ligament as she says that she is having pain generalized throughout the entire ankle including lateral and medial malleolus. She is able to wiggle all toes as well as her ankle without any difficulty but it does cause some tenderness. CMS intact, strong dorsalis pedis pulse, an Matthew wrap was applied over her right ankle and she was given a Toradol shot as well as Tylenol here in the emergency department and told to follow-up with her primary care provider in 7 to 10 days if continued pain.All questions answered return precautions given patient safe for discharge. Departure - Departure Disposition: 01 Home, Self Care Clinical Impression: Right ankle sprain Instructions: ED Sprain Foot, ED Sprain Ankle Comments: Thank you for trusting us with your care. We have completed x-rays of your ankle and your foot we are not seeing any acute abnormalities or findings at this point in time. We have put an Matthew wrap on your ankle to help with pain and swelling take this off periodically and do some gentle range of motion stretches to right ankle. Alternate between Tylenol ibuprofen for pain and discomfort. We have given you Tylenol and Toradol here in the emergency department. Please follow-up with your primary care provider if your pain has not improved after 10 days to see if you need to repeat x-rays. Continue to ambulate on your right ankle as this is what is shown to help ankle sprains recover quickest. Forms: PCP List
[2024-06-14] MEDS: KETOROLAC 15 MG/ML VIAL IM STA (15:20)
[2024-06-14] MEDS: ACETAMINOPHEN 325 MG TABLET PO STA (15:20)
[2024-06-14 15:35] VITALS: BP 118/79
== END 2024-06-14 15:36 | disposition home or self-care (01) ==
LOC: ED 12:40
DX: S93.401A Sprain of unspecified ligament of right ankle, initial encounter (principal); W01.0XXA Fall on same level from slipping, tripping and stumbling without subsequent striking against object, initial encounter; Y92.008 Other place in unspecified non-institutional (private) residence as the place of occurrence of the external cause
CPT/HCPCS: 73610; 73630; 96372; 99283; 99284; A9270